=== PATIENT | male | born 1965 | race Caucasian/White ===

== ENCOUNTER 2023-03-17 13:36 | Inpatient (IN) | payer SELFPAY ==
[2023-03-17] VITALS (23 sets, daily range): BP systolic 141–199; BP diastolic 68–93; PULSE 52–99; RESP 14–24; TEMP 36.6–37.2; O2SAT 95–100; BMI 29.1
[2023-03-17 13:57] LABS: Basophils % 0.3 %; Eosinophils % 0.5 %; Hematocrit 40.3 % (37-53); Lymphocytes # 0.7 10^3/uL (0.8-4.8); Lymphocytes % 8.5 %; Mean Corpuscular Hemoglobin 28.4 pg (27-33); Mean Corpuscular Volume 88.6 fl (82-101); Mean Platelet Volume 10.2 fL (7.4-10.4); Monocytes # 0.6 10^3/uL (0.2-0.9); Neutrophils # 6.39 10^3/uL (1.8-7.7); Neutrophils % 82.2 %; Nucleated Red Blood Cells % 0 %; Platelet Count 265 10^3/cmm (157-399); Red Blood Count 4.55 10^6/uL (3.85-5.65); Red Cell Distribution Width 13.2 % (12.1-15.1); White Blood Count 7.77 10^3/uL (3.29-11.43)
--- NOTE | 2023-03-17 14:09 | CTR_ITS ---
PROCEDURE INFORMATION: Exam: CT Abdomen And Pelvis Without Contrast Exam date and time: 03/17/2023 4:55 PM Age: 58 years old Clinical indication: Abdominal pain; Flank; Right; Prior surgery; Surgery date: 6+ months; Surgery type: Appy; Additional info: Flank pain TECHNIQUE: Imaging protocol: Computed tomography of the abdomen and pelvis without contrast. Radiation optimization: All CT scans at this facility use at least one of these dose optimization techniques: automated exposure control; mA and/or kV adjustment per patient size (includes targeted exams where dose is matched to clinical indication); or iterative reconstruction. REPORTING DATA: Count of CT and Cardiac NM exams in prior 12 months: This patient has received 0 known CTs and 0 known cardiac nuclear medicine studies in the 12 months prior to the current study. COMPARISON: US renal BI* [id number] 03/17/2023 4:22 PM RADIATION DOSE METRICS: Total DLP (mGy-cm): 798 FINDINGS: Tubes, catheters and devices: Right groin central venous catheter with tip in the distal SVC. Lungs: Mild atelectasis. Liver: Hypodense lesions in the liver are too small to characterize but are most likely cysts. No suspicious nodule. Gallbladder and bile ducts: Partially contracted gallbladder. No visible stones. The bile ducts are normal. Pancreas: Normal. No ductal dilation. Spleen: Normal. No splenomegaly. Adrenal glands: Normal. No mass. Kidneys and ureters: 9 mm obstructing calculus in the proximal right ureter. Mild right hydronephrosis. 4 mm right renal calculus. Atrophic left kidney. 5 mm left renal calculus. No left hydronephrosis. 1.7 cm hyperdense cortical lesion in the superior left kidney, Hounsfield units 49. Bilateral perinephric stranding. Stomach and bowel: Unremarkable. No obstruction. No mucosal thickening. Appendix: The appendix is not visualized. No secondary signs of appendicitis. Intraperitoneal space: Mild ascites in the pelvis and paracolic gutters. No free peritoneal air. Vasculature: Unremarkable. No abdominal aortic aneurysm. Lymph nodes: Unremarkable. No enlarged lymph nodes. Urinary bladder: Hester catheter in a decompressed urinary bladder. Mild wall thickening. Reproductive: Unremarkable as visualized. Bones/joints: Mild degenerative changes of the spine. No acute fracture. Soft tissues: Lipoma in the left iliacus muscle and iliopsoas tendon. Lumbar subcutaneous soft tissue edema. CT/CT kidney stone [id number] IMPRESSION: 1. 9 mm obstructing calculus in the proximal right ureter with mild hydronephrosis. 2. Bilateral renal calculi. 3. 1.7 cm indeterminate cortical lesion in the superior left kidney. Recommend non-emergent MRI without and with contrast or non-emergent CT without and with contrast. MRI is preferred for masses under 1.5 cm. 4. Atrophic left kidney. 5. Mild wall thickening of the urinary bladder is most likely related to nondistention. Cystitis is not excluded. 6. Mild ascites. COMMENTS: Consistent with the [employer]'s Incidental Findings Committee white paper (J Am Aleksandr Radiol 2018): Any incidental renal lesion less than 1 cm or classified as too small to characterize, or any incidental cystic renal lesion characterized as simple-appearing, is likely benign. No follow-up imaging is recommended for these lesions per consensus recommendations based on imaging criteria.
--- NOTE | 2023-03-17 14:13 | W.ED.MALEGU ---
HPI - Male Genitourinary General: Chief complaint: Urogenital-Male Stated complaint: kidney pain Time Seen by Provider: 03/17/23 13:51 Source: patient Mode of arrival: ambulatory History of Present Illness: 58-year-old male comes in complaining of right flank pain. He is concerned he has had kidney stones in the past he is having flank pain reminiscent of his previous kidney stones. Has not had any hematuria denies fever sweats chills no dysuria urgency or frequency. Earlier this year he was told he had kidney problems and his creatinine is elevated he does not recall a particular number. He had a CT which she showed us a copy of which did not show significant abnormality. Onset (ago): minute(s) Duration: constant Location: right flank Severity: moderate Relieving factors: none Exacerbating factors: none Associated symptoms: Deny discharge, dysuria, fevers/chills, hematuria, nausea, rash, swelling, urinary incontinence, urinary retention, mass or vomiting Review of Systems Const: Denies: fever(s) or chills Card: Denies: chest pain Resp: Denies: dyspnea GI: Denies: abdominal pain, nausea or vomiting : Reports: flank pain; Denies: dysuria, urinary frequency, urinary urgency, urinary incontinence or hematuria Musc: Denies: neck pain or back pain Skin/Breast: Denies: rash PFSH ED PFSH: Medical History (Updated 03/18/23 @ 06:45 by Chalino Bruce DO) Elevated blood pressure reading in office with white coat syndrome, without diagnosis of hypertension Kidney stones Surgical History (Updated 03/17/23 @ 16:36 by Ceci Moody MD) History of appendectomy History of vasectomy with subsequent reversal Family History (Updated 03/17/23 @ 16:38 by Ceci Moody MD) Mother Renal cancer Other Hearing loss Denies family history of Sinus disease Diabetes Autoimmune disease Chronic kidney disease (CKD) Social History (Updated 03/17/23 @ 16:39 by Ceci Moody MD) Smoking and tobacco/nicotine status: never used tobacco/nicotine Alcohol intake: never Substance/Drug Use: never Lives independently: Yes Household members: spouse Marital status: Physical Exam Const: COMMON NORMALS: no acute distress GENERAL APPEARANCE: cooperative and comfortable ORIENTATION/CONSCIOUSNESS: Yes awake, Yes oriented to person, Yes oriented to place and Yes oriented to time HENMT: COMMON NORMALS: normocephalic, atraumatic and hearing grossly normal bilaterally HEAD & SCALP: normocephalic and atraumatic Resp: COMMON NORMALS: normal respiratory effort, No retractions, No use of accessory muscles and clear to auscultation bilaterally AUSCULTATION: clear to auscultation bilaterally Cardio: COMMON NORMALS: regular rate, regular rhythm and No murmurs present (Cardio) RATE: regular rate RHYTHM: regular rhythm GI: COMMON NORMALS: Soft to palpation and No hepatosplenomegaly present AUSCULTATION: Yes normoactive bowel sounds PALPATION: Yes Soft to palpation, No Tenderness to palpation present (GI), No Guarding due to palpation present (GI) and Yes No hepatosplenomegaly present Extremity: COMMON NORMALS: normal to inspection, capillary refill normal, no clubbing, cyanosis or edema, no calf tenderness and no pedal edema Neuro: SENSORIUM/ORIENTATION: Yes oriented to person, Yes oriented to place and Yes oriented to time Skin: COMMON NORMALS: no rashes or lesions noted GENERAL SKIN EXAM: no rashes or lesions noted Course Vital Signs: Vital signs: Vital Signs Temperature 98.1 F 03/18/23 01:00 Pulse Rate 55 L 03/18/23 02:00 Respiratory Rate 16 03/18/23 02:00 Blood Pressure 163/88 03/18/23 02:00 Pulse Oximetry 96 03/18/23 02:00 Oxygen Delivery Me thod Room Air 03/17/23 19:30 MDM - Male Medical Decision Making Severe Hyperkalemia confirmed by second lab draw EKG shows peaked T waves. Patient started on calcium chloride sodium bicarb albuterol also given glucose/insulin and albuterol. Consulted Dr. Danielle for placement of a temporary dialysis line consulted nephrology. Discussed with hospitalist will admit. CT shows obstructive stone on the right ureter proximally there is severe atrophy of the left kidney. Interestingly his CT done in [place] which the patient has a hard copy of the report makes no mention of atrophy in the left kidney. Start emergent dialysis admit to ICU. Orders written. No sign of secondary infections. Medical Records I reviewed the patient's medical records. Lab Data I reviewed the patient's lab results. 03/18/23 05:00 03/18/23 05:00 Radiology Impressions Abdomen/Pelvis CT 03/17/23 14:09 IMPRESSION: 1. 9 mm obstructing calculus in the proximal right ureter with mild hydronephrosis. 2. Bilateral renal calculi. 3. 1.7 cm indeterminate cortical lesion in the superior left kidney. Recommend non-emergent MRI without and with contrast or non-emergent CT without and with contrast. MRI is preferred for masses under 1.5 cm. 4. Atrophic left kidney. 5. Mild wall thickening of the urinary bladder is most likely related to nondistention. Cystitis is not excluded. 6. Mild ascites. COMMENTS: Consistent with the [employer] [place] [employer]'s Incidental Findings Committee white paper (J Am Aleksandr Radiol 2018): Any incidental renal lesion less than 1 cm or classified as too small to characterize, or any incidental cystic renal lesion characterized as simple-appearing, is likely benign. No follow-up imaging is recommended for these lesions per consensus recommendations based on imaging criteria. Renal Ultrasound 03/17/23 15:56 IMPRESSION: 1. Mild right hydronephrosis. The calculus in the proximal right ureter visible on the CT scan, is not visible on the ultrasound. 2. 4 mm right renal calculus. 3. Small left kidney. The small left renal calculus visualized on the CT is not visible on the ultrasound. Laboratory Results WBC 7.77 10^3/uL (3.29-11.43) 03/17/23 13:52 RBC 4.55 10^6/uL (3.85-5.65) 03/17/23 13:52 Hgb 12.90 g/dL (11.27-16.99) 03/17/23 13:52 Hct 40.3 % (37-53) 03/17/23 13:52 MCV 88.6 fl (82-101) 03/17/23 13:52 MCH 28.4 pg (27-33) 03/17/23 13:52 MCHC 32.0 g/dL (30-55) 03/17/23 13:52 RDW 13.2 % (12.1-15.1) 03/17/23 13:52 Plt Count 265 10^3/cmm (157-399) 03/17/23 13:52 MPV 10.2 fL (7.4-10.4) 03/17/23 13:52 Neut % (Auto) 82.2 % 03/17/23 13:52 Lymph % (Auto) 8.5 % 03/17/23 13:52 [place] % (Auto) 8.0 % 03/17/23 13:52 Eos % (Auto) 0.5 % 03/17/23 13:52 Baso % (Auto) 0.3 % 03/17/23 13:52 Neut # (Auto) 6.39 10^3/uL (1.8-7.7) 03/17/23 13:52 Lymph # (Auto) 0.7 10^3/uL (0.8-4.8) L 03/17/23 13:52 [place] # (Auto) 0.6 10^3/uL (0.2-0.9) 03/17/23 13:52 Eos # (Auto) 0.0 10^3/uL (0.0-0.8) 03/17/23 13:52 Baso # (Auto) 0.0 10^3/uL (0.0-0.1) 03/17/23 13:52 Nucleated RBC % (auto) 0 % 03/17/23 13:52 Nucleated RBCs # 0.0 /100WBC 03/17/23 13:52 Sodium 127 mmol/L (136-145) L 03/17/23 14:29 Potassium 8.2 mmol/L (3.5-5.1) H* 03/17/23 14:29 Chloride 92 mmol/L (98-107) L 03/17/23 14:29 Carbon Dioxide 12 mmol/L (22-29) L 03/17/23 14:29 Anion Gap 31.2 (5-19) H 03/17/23 14:29 BUN 153 mg/dL (6-20) H* 03/17/23 14:29 Creatinine 20.2 mg/dL (0.7-1.2) H* 03/17/23 14:29 GFR Calculation 2.4 mL/min (90-130) L 03/17/23 14:29 Glucose 82 mg/dL (65-115) 03/17/23 14:29 POC Glucose 82 mg/dL (70-110) 03/17/23 15:53 Calculated Osmolality 313 mOsm/kg (285-295) H 03/17/23 14:29 Calcium 8.4 mg/dL (8.5-10.5) L 03/17/23 14:29 Total Bilirubin 0.3 mg/dL (0.15-1.2) 03/17/23 13:52 AST 5 U/L (0-40) 03/17/23 13:52 ALT 7 U/L (0-41) 03/17/23 13:52 Alkaline Phosphatase 69 U/L (40-130) 03/17/23 13:52 Total Protein 6.6 g/dL (6.6-8.7) 03/17/23 13:52 Albumin 3.7 g/dL (3.5-5.2) 03/17/23 13:52 Globulin 2.9 g/dL (1.3-4.6) 03/17/23 13:52 Salicylates < 0.3 mg/dL (3-10) L 03/17/23 13:52 All radiology interpretation(s) finalized by discharge Critical Care Time Critical Care Time: Critical Care Time: Yes Total Critical Care Time: 60 Attestation: The high probability of a clinically significant, sudden or life threatening deterioration of the patient's renal system(s) required my full and direct attention, intervention and personal management. The critical care time is as shown. This time is in addition to time spent performing any reported procedures but includes the following: [x] Data and vital sign review and interpretation [x] Patient assessment, examination and intervention [x] Documentation [x] Medication orders and management Discharge Plan Discharge Patient Disposition: Admitted As Inpatient Admit Provider: Ceci Moody Clinical Impression: Acute renal failure, Kidney stones, Acute hyperkalemia Condition: Stable Coding Level of Care Code ED [employer] for Tommy Levi
[2023-03-17 14:15] LABS: Alanine Aminotransferase 7 U/L (0-41); Albumin Level 3.7 g/dL (3.5-5.2); Alkaline Phosphatase 69 U/L (40-130); Anion Gap 32.2 (5-19); Aspartate Amino Transferase 5 U/L (0-40); Calcium 8.4 mg/dL (8.5-10.5); Carbon Dioxide 11 mmol/L (22-29); Chloride 93 mmol/L (98-107); Globulin 2.9 g/dL (1.3-4.6); Glomerular Filtration Rate 2.4 mL/min (90-130); Glucose 82 mg/dL (65-115); Sodium 128 mmol/L (136-145); Total Bilirubin 0.3 mg/dL (0.15-1.2); Total Protein 6.6 g/dL (6.6-8.7)
[2023-03-17 14:23] LABS: Osmolality Calculated 307 mOsm/kg (285-295)
[2023-03-17 14:25] LABS: Blood Urea Nitrogen 130 mg/dL (6-20); Potassium 8.2 mmol/L (3.5-5.1)
--- NOTE | 2023-03-17 14:26 | ECG_ITS ---
[facility] Test Date: 2023-03-17 Pat Name: Ricky Russo Department: Room: Gender: Male F[place]aver: : 1965 Requested By: Chalino Xiao Order Number: [id number] Taurus MD: Ashwin Friend M.D. Measurements Intervals [place] Rate: 62 P: 55 OR: 169 QRS: 64 QRSD: 102 T: 45 QT: 386 QTc: 393 Interpretive Statements SINUS RHYTHM No previous ECG available for comparison Electronically Signed On 03-17-2023 15:14:36 CDT by Ashwin Friend M.D. [id number]
--- NOTE | 2023-03-17 14:44 | PC.PHAR ---
PT STATES TAKES TAMSULOSIN 0.4 MG DAILY NEEDED FOR KIDNEY STONES. VERIFIED PT USES [facility]. PHARMACY IS UNABLE TO VERIFY THIS MEDICATION, THEY HAVE NOT FILLED FOR HIM.
[2023-03-17] MEDS: sodium chloride 0.9% 1,000 ML 999 ML IV ×2 (14:49→14:50)
[2023-03-17 14:50] LABS: Anion Gap 31.2 (5-19); Calcium 8.4 mg/dL (8.5-10.5); Carbon Dioxide 12 mmol/L (22-29); Chloride 92 mmol/L (98-107); Glomerular Filtration Rate 2.4 mL/min (90-130); Glucose 82 mg/dL (65-115); Sodium 127 mmol/L (136-145)
[2023-03-17 14:57] LABS: Osmolality Calculated 313 mOsm/kg (285-295)
[2023-03-17 15:00] LABS: Blood Urea Nitrogen 153 mg/dL (6-20); Potassium 8.2 mmol/L (3.5-5.1)
[2023-03-17] MEDS: dextrose 10% 1,000 ML 75 ML IV (15:48)
--- NOTE | 2023-03-17 15:48 | PC.NURSE ---
bolus 100mL dextrose from infusion per Dr. Bruce. infusion started at 75mL/hr
--- NOTE | 2023-03-17 15:52 | P.HP_ITS ---
Providers/Chief Complaint Admitting Physician: Ceci Moody MD Primary Care Provider: none currently Previously saw Dr Amaya in [place] Chief Complaint: kidney pain History of Present Illness Ricky Russo is a 58 year old male who presented to the emergency room with chief complaint of kidney pain. Mr. Russo has a history of kidney stones in the past. He is never required any invasive or noninvasive intervention for kidney stones previously. He has passed the stones but does not know what kind of stones he has passed. He began having right-sided pain a little more than a week ago on Friday. It was sharp right-sided pain that has not abated and ultimately he decided to come in today for further evaluation. Pain has not been radiating into his groin. He has not passed a stone that he is aware of. He has had general malaise. He had been having issues with constipation but lately has had diarrhea. He is nauseated presently. On arrival to the emergenc y room blood pressures were 160s over 80s and heart rate in the 90s. He was afebrile. Laboratory studies came back showing BUN and creatinine of 130/19.9 and a potassium level of 8.2. Repeat labs to verify showed BUN and creatinine 153/20.2 again with a potassium of 8.2. He has received calcium chloride and sodium bicarbonate, albuterol, insulin and dextrose along with IV fluids. He has also been given Kayexalate. Bilateral renal ultrasound has been done and CT without contrast is ordered but pending. He has some right flank pain but not currently severe. He has not used any NSAIDs. His only medication is as needed Flomax when he is having issues with kidney stones. He has no known personal history of chronic kidney disease. He has recently located here from [place]. I was able to see labs that were done in August 2022 and at that time BUN and creatinine were 35/1.97 with potassium of 5.3. Other labs available from then are documented below in the data section. Twelve-lead EKG does have some elevation in T waves but currently in sinus rhythm. Hospitalist were contacted for admission given need for emergent dialysis. Surgery has placed temporary dialysis catheter in the right groin. Approximately 15 mL of urine have been collected just recently and are noted to be clear and yellow. At no time does he report any tea colored urine, blood in his urine. Last urine output was a couple of days ago at home. No recent chest pain or difficulty breathing. He has had recent sore throat. He is also had some low back pain and complained of his feet hurting him most recently. General sense of not feeling well currently. No palpitations. Nephrology has been contacted for consultation. Review of Systems General: Reports: Other (ROS as per HPI or as otherwise noted here) Medications/Allergies Home Medications Medication Instructions Recorded Confirmed Last Taken Type tamsulosin 0.4 mg capsule 0.4 mg PO DAILY PRN KIDNEY STONES 03/17/23 03/17/23 03/17/23 History Allergies Allergy/AdvReac Type Severity Reaction Status Date / Time No Known Allergies Allergy Verified 03/17/23 13:41 PFSH Acute PFSH: Medical History (Updated 03/17/23 @ 17:15 by Ceci Moody MD) Elevated blood pressure reading in office with white coat syndrome, without diagnosis of hypertension Kidney stones Surgical History (Updated 03/17/23 @ 16:36 by Ceci Moody MD) History of appendectomy History of vasectomy with subsequent reversal Family History (Updated 03/17/23 @ 16:38 by Ceci Moody MD) Mother Renal cancer Other Hearing loss Denies family history of Sinus disease Diabetes Autoimmune disease Chronic kidney disease (CKD) Social History (Updated 03/17/23 @ 16:39 by Ceci Moody MD) Smoking and tobacco/nicotine status: never used tobacco/nicotine Alcohol intake: never Substance/Drug Use: never Lives independently: Yes Household members: spouse Marital status: Vitals/I&O/Wt Last Vital Signs Temp 97.8 F 03/17/23 13:43 Pulse 70 03/17/23 15:39 Resp 23 H 03/17/23 15:39 BP 156/68 03/17/23 15:39 Pulse Ox 100 03/17/23 15:39 O2 Del Method Room Air 03/17/23 15:39 03/17/23 03/17/23 03/17/23 06:59 14:59 22:59 Intake Total 1999 Balance 1999 Weight last 48 hrs Weight 97.522 kg Physical Exam Narrative: Patient is awake and alert, able to provide history. Normocephalic. Extraocular movements are intact. Oropharynx with dry mucous membranes. Neck is supple. Lungs are clear to auscultation bilaterally without any rales rhonchi or wheezes. Cardiovascular exam reveals a regular rate and rhythm. Abdomen is soft. Mild right flank pain. No left-sided flank pain. Positive bowel sounds. No pitting edema. Hemodialysis catheter is in place in the right groin with dressing intact. 2+ radial pulse. No abnormal movements. Speech clear, face symmetric, moves all extremities. Data 03/17/23 13:52 03/17/23 14:29 Other Labs: LABS FROM outside facility from AUGUST 2022 viewed on patients cell phone: Sodium 136 Potassium 5.3 Chloride 102 CO2 25 BUN 35 Creatinine 1.97 eGFR 39 Glucose 96 Calcium 9.2 Magnesium 2.2 Other Laboratory Results at [facility] Today WBC 7.77 10^3/uL (3.29-11.43) 03/17/23 13:52 RBC 4.55 10^6/uL (3.85-5.65) 03/17/23 13:52 Hgb 12.90 g/dL (11.27-16.99) 03/17/23 13:52 Hct 40.3 % (37-53) 03/17/23 13:52 MCV 88.6 fl (82-101) 03/17/23 13:52 MCH 28.4 pg (27-33) 03/17/23 13:52 MCHC 32.0 g/dL (30-55) 03/17/23 13:52 RDW 13.2 % (12.1-15.1) 03/17/23 13:52 Plt Count 265 10^3/cmm (157-399) 03/17/23 13:52 MPV 10.2 fL (7.4-10.4) 03/17/23 13:52 Neut % (Auto) 82.2 % 03/17/23 13:52 Lymph % (Auto) 8.5 % 03/17/23 13:52 [place] % (Auto) 8.0 % 03/17/23 13:52 Eos % (Auto) 0.5 % 03/17/23 13:52 Baso % (Auto) 0.3 % 03/17/23 13:52 Neut # (Auto) 6.39 10^3/uL (1.8-7.7) 03/17/23 13:52 Lymph # (Auto) 0.7 10^3/uL (0.8-4.8) L 03/17/23 13:52 [place] # (Auto) 0.6 10^3/uL (0.2-0.9) 03/17/23 13:52 Eos # (Auto) 0.0 10^3/uL (0.0-0.8) 03/17/23 13:52 Baso # (Auto) 0.0 10^3/uL (0.0-0.1) 03/17/23 13:52 Nucleated RBC % (auto) 0 % 03/17/23 13:52 Nucleated RBCs # 0.0 /100WBC 03/17/23 13:52 PT 15.90 SECONDS (12.1-14.9) H 03/17/23 16:13 INR 1.22 (0.8-1.2) H 03/17/23 16:13 APTT 27.7 SECONDS (23.9-36.7) 03/17/23 16:13 Sodium 127 mmol/L (136-145) L 03/17/23 14:29 Potassium 8.2 mmol/L (3.5-5.1) H* 03/17/23 14:29 Chloride 92 mmol/L (98-107) L 03/17/23 14:29 Carbon Dioxide 12 mmol/L (22-29) L 03/17/23 14:29 Anion Gap 31.2 (5-19) H 03/17/23 14:29 BUN 153 mg/dL (6-20) H* 03/17/23 14:29 Creatinine 20.2 mg/dL (0.7-1.2) H* 03/17/23 14:29 GFR Calculation 2.4 mL/min (90-130) L 03/17/23 14:29 Glucose 82 mg/dL (65-115) 03/17/23 14:29 Estimat Average Glucose 108 03/17/23 16:13 Hemoglobin A1c 5.4 % (4.0-6.0) 03/17/23 16:13 Calculated Osmolality 313 mOsm/kg (285-295) H 03/17/23 14:29 Calcium 8.4 mg/dL (8.5-10.5) L 03/17/23 14:29 Magnesium 2.3 mg/dL (1.7-2.3) 03/17/23 16:13 Total Bilirubin 0.3 mg/dL (0.15-1.2) 03/17/23 13:52 AST 5 U/L (0-40) 03/17/23 13:52 ALT 7 U/L (0-41) 03/17/23 13:52 Alkaline Phosphatase 69 U/L (40-130) 03/17/23 13:52 Creatine Kinase 63 U/L (39-308) 03/17/23 16:13 Total Protein 6.6 g/dL (6.6-8.7) 03/17/23 13:52 Albumin 3.7 g/dL (3.5-5.2) 03/17/23 13:52 Globulin 2.9 g/dL (1.3-4.6) 03/17/23 13:52 Complement C3 111 mg/dL (90-180) 03/17/23 16:13 Hep Bs Antigen Non-reactive (Nonreactive) 03/17/23 16:13 Hep Bs Antibody 6.6 (11.5-1000) L 03/17/23 16:13 Hepatitis C Antibody Non-reactive (Nonreactive) 03/17/23 16:13 Renal ultrasound performed but pending read CT without contrast pending completion A&P Assessment and plan (1) Acute renal failure: Specific etiology unclear at this point in time. Based on available reference labs appears to be acute on chronic, baseline chronic kidney disease stage IIIb based on available information from labs obtained in August of this year when EGFR was 39. Has whitecoat hypertension by description but no chronic antihypertensive therapy. Based on available history obstructive process currently highest in the differential though does not present like classic acutely obstructive stone. No recent medication changes, use of [id number] er medicines or significant fluctuations in blood pressure to suggest ATN. No known history of autoimmune diseases but has had recent sore throat, back pain and bilateral foot pain. Not a known diabetic and presently with normal blood sugars. No excessive physical activity or trauma reported. Denies alcohol or substance use. Currently with symptomatic hyperkalemia and azotemia from acute renal failure along with high anion gap metabolic acidosis. (2) Kidney stones: History of kidney stones, specific type of stone unknown. Has had symptoms suggesting recurrent kidney stones lately but not presenting with classic severe pain typically associated with such. Never required intervention for kidney stones in the past. (3) High anion gap metabolic acidosis: Secondary to acute renal failure. (4) Elevated blood pressure reading without diagnosis of hypertension: Variable blood pressures currently in a healthcare setting. Indicates that outside of healthcare setting blood pressures are typically normal. Has never required antihypertensive therapy long-term. (5) Diarrhea: Suspect functional diarrhea based on preceding constipation, but given acute renal failure have to keep in mind potential infectious sources Plan Inpatient admission ICU level care at least initially Nephrology consultation for emergent dialysis Temporary hemodialysis catheter has been placed by general surgery Plan for emergent hemodialysis Re-evaluate labs post hemodialysis Has received insulin and dextrose, albuterol, calcium chloride, bicarbonate and Kayexalate Telemetry monitoring Continue IV fluids Follow-up pending CT stone protocol without contrast Patient and aware that we do not have urology available and pending results of above consideration may have to be given to transfer if indicated after addressing emergent need for acute hemodialysis Follow-up pending renal ultrasound Hester catheter for close monitoring of urine output in the setting of acute renal failure Check urinalysis when urine available, CK, hepatitis, HIV, C3-C4, MUKESH, salicylate, A1c, lipid panel, iron, PTH and vitamin D Check magnesium, phosphorus and uric acid Check stool studies Monitor blood pressures presently given anticipated initiation of acute h emodialysis today May have to consider initiation of antihypertensives, keeping in mind history of white coat hypertension Supportive care otherwise Findings, concerns and plans discussed with patient and his and both given opportunity to ask questions Anticipate DC home with outpatient follow up with nephrology as a new patient, possible with hemodialysis as a new patient, and with primary care provider who will need to be established. FULL CODE Attestations Medical Necessity Statement*: Anticipated stay greater than two midnights in this gentleman with acute renal failure necessitating emergent hemodialysis due to azotemia and hyperkalemia along with anion gap metabolic acidosis. At high risk of rapid clinical decline up to and including the possibility of without emergent intervention. Pending results of noncontrasted CT stone protocol may require consideration of transfer for urological intervention. Coding Level of Care Code 18519 High MDM includes number and complexity of problems actively addressed during encounter (Acute ), amount and/or complexity of data reviewed/ordered [ previous or external records, resulted lab(s)/test(s), ordered lab(s)/test(s) and other healthcare professional discussion (Dr Armas (Nephrology))] and described risk of complication, morbidity or mortality of management (need for emergent hemodialysis, admission to ICU) as documented Diagnoses Acute renal failure N17.9 Kidney stones N20.0 High anion gap metabolic acidosis E87.29 Elevated blood pressure reading without diagnosis of hypertension R03.0 Diarrhea R19.7
[2023-03-17] MEDS: calcium chloride 10% Syr 10 mL 2 GM IVP (15:55)
[2023-03-17] MEDS: sodium bicarbonate 8.4% 1 mEq/mL 50mL Syr 100 MEQ IVP (15:56)
[2023-03-17] MEDS: insulin regular-human 100 units/1 mL 10 UNIT IVP (15:56)
--- NOTE | 2023-03-17 15:56 | USR_ITS ---
PROCEDURE INFORMATION: Exam: US Retroperitoneal; Complete; Kidneys and Bladder Exam date and time: 03/17/2023 4:22 PM Age: 58 years old Clinical indication: Other: Krzysztof TECHNIQUE: Imaging protocol: Real-time ultrasound of the retroperitoneum with image documentation. Complete exam focused on the kidneys and bladder. COMPARISON: CT kidney stone [id number] 03/17/2023 4:55 PM FINDINGS: Limitations: The tubing machine operator did not provide any color Doppler images of the kidneys or the urinary bladder. Right kidney: 14.1 x 5.9 x 7.3 cm. Mild hydronephrosis. 4 mm echogenic focus in a mid calyx is consistent with a small calculus. No calculus visualized in the proximal collecting system. No visible mass or cyst. Left kidney: 9.4 x 4.9 x 5.2 cm. No visible mass, cyst, calculus, or hydronephrosis. Urinary bladder: Normal size and contour. US/US renal BI* [id number] IMPRESSION: 1. Mild right hydronephrosis. The calculus in the proximal right ureter visible on the CT scan, is not visible on the ultrasound. 2. 4 mm right renal calculus. 3. Small left kidney. The small left renal calculus visualized on the CT is not visible on the ultrasound.
[2023-03-17] MEDS: sodium polystyrene sulfonate 15 gm/60 mL Btl PO (16:03)
--- NOTE | 2023-03-17 16:05 | P.CONIM_ITS ---
Providers/Reason For Consult Consulting Physician/Specialty*: Dr. Gelacio Danielle DO/General surgery Reason for Consult*: Temporary hemodialysis catheter placement Attending Physician: Juve Paige MD History of Present Illness History of Present Illness Ricky Russo is a 58 year old male who presented to the emergency room with a 1 week history of bilateral kidney pain. He has history of kidney stones and reports that he has passed the stones in the last week. He wanted to come in for evaluation anyway. He denies any abdominal pain nausea or emesis. In August his creatinine was reportedly 1.9 but in the hospital today his creatinine is over 20. He denies any fever or chills. The emergency department has requested urgent temporary hemodialysis catheter placement. Review of Systems General: Reports: 10 or more systems reviewed and unremarkable except in HPI and below Medications/Allergies Home Medications Medication Instructions Recorded Confirmed Last Taken Type tamsulosin 0.4 mg capsule 0.4 mg PO DAILY PRN KIDNEY STONES 03/17/23 03/17/23 03/17/23 History Allergies Allergy/AdvReac Type Severity Reaction Status Date / Time No Known Allergies Allergy Verified 03/17/23 13:41 Current Medications Generic Name Dose Route Start Last Admin Trade Name Freq PRN Reason Stop Dose Admin Acetaminophen 650 mg 03/17/23 18:57 03/17/23 22:01 Acetaminophen 325 Mg Tablet PO 650 mg Q6H PRN Administration MILD PAIN Docusate Sodium 100 mg 03/17/23 18:57 03/17/23 21:51 Docusate Sodium 100 Mg Capsule PO 100 mg BID ANA Administration Heparin Sodium (Porcine) 5,000 unit 03/17/23 20:00 03/17/23 21:51 Heparin 5,000 Unit/Ml Inj 1 Ml SUBCUT 5,000 unit Q12H ANA Administration Dextrose 1,000 mls @ 75 mls/hr 03/17/23 14:45 03/18/23 01:22 D10w IV 95 mls/hr .[id number] ANA Administration PFSH Acute PFSH: Medical History Elevated blood pressure reading in office with white coat syndrome, without diagnosis of hypertension Kidney stones Surgical History History of appendectomy History of vasectomy with subsequent reversal Family History Mother Renal cancer Other Hearing loss Denies family history of Sinus disease Diabetes Autoimmune disease Chronic kidney disease (CKD) Social History Smoking and tobacco/nicotine status: never used tobacco/nicotine Alcohol intake: never Substance/Drug Use: never Lives independently: Yes Household members: spouse Marital status: Vitals/I&O/Wt Last Vital Signs Temp 98.1 F 03/18/23 01:00 Pulse 52 L 03/18/23 06:00 Resp 15 03/18/23 06:00 BP 153/88 03/18/23 06:00 Pulse Ox 95 03/18/23 06:00 O2 Del Method Room Air 03/17/23 19:30 03/17/23 03/18/23 03/18/23 22:59 06:59 14:59 Intake Total 2532.5 / 2532.5 804.333 / 3336.833 Output Total 1817 / 1817 50 / 1867 Balance 715.5 / 715.5 754.333 / 1469.833 Weight last 48 hrs Weight 214 lb Weight 209 lb 10.554 oz Weight 215 lb Physical Exam Narrative: General : Patient is well developed , no acute distress, oriented x3 Head : Normal cephalic, a-traumatic. Ears : Pinnae and external canal are normal. Hearing is normal. Eyes : PERRLA, Sclera and injection are normal. No conjunctival discharge. Nose : Mucous membranes are without erythema. Throat : buccal mucosa is normal, gums are without significant recession or h ypertrophy. Lungs : Equal chest rise bilaterally, no use of accessory muscles, trachea is midline. Cor : Rate and rhythm are normal. Abdomen : Soft, ND, NT, no g/r/m Extremities : No edema, no cyanosis or clubbing, dorsalis pedis pulses are present bilaterally, non-tender to palpation of calves. Upper extremities are normal bilaterally. Back : non-tender to palpation, no CVA tenderness. Neuro : CN II - XII intact, Upper and lower extremities have equal and full strength Urinary Catheter Management: Hester: Cath Placed During This Visit: yes Reason for Continuing Indwelling Catheter: Accurate Measurement of Urinary Output in Critically Ill Patients Urinary Catheter Date of Insertion: 03/17/23 Urinary Catheter Time of Insertion: 16:46 Data 03/18/23 05:00 03/18/23 05:00 A&P Assessment and plan (1) Acute renal failure: Plan Temporary hemodialysis catheter placement The risks and benefits of the procedure, including but not limited to, bleeding, infection, scar, numbness, pain, damage to surrounding structures, malfunction of the catheter, were explained to the patient. He is understanding of the risks and wishes to proceed. Timeout was performed with nurse in the room and nurse was present during the procedure Coding Level of Care Code 98394 Diagnoses Acute renal failure N17.9
--- NOTE | 2023-03-17 16:05 | P.PCN_ITS ---
Procedure Note: Procedure: Preoperative diagnosis: Acute renal failure requiring emergent dialysis Postoperative diagnosis: Same Procedure: Placement of Mahurkar catheter in the right femoral vein Surgeon: Dr. Gelacio Danielle, DO Anesthesia: Local Description of procedure: The patient's right groin was prepped and draped in a sterile manner. 5 mL of 1% lidocaine was infiltrated at the site of planned entry, an introducer needle was used to access the right femoral vein. Guidewire was passed through the introducer needle and the introducer needle was removed. Serial dilators were passed over the guidewire after the skin incision was extended using 11 blade and Mahurkar catheter was then passed over the krishan dewire and the guidewire was removed. The catheter was sutured to the skin using 2-0 Ethilon suture. Sterile dressings were applied. Coding Level of Care Code Acute Code for Chg Fwd
[2023-03-17] MEDS: promethazine 25 mg/mL SDV 1 mL IM (16:13)
--- NOTE | 2023-03-17 16:20 | PC.NURSE ---
bolus of 100 mL dextrose finished at 1540, infusion of 75mL/hr started at 1540
[2023-03-17] MEDS: albuterol 2.5 mg/3 mL Neb 10 MG INHALATION (16:29)
[2023-03-17 16:36] LABS: INR 1.22 (0.8-1.2)
[2023-03-17 16:37] LABS: Partial Thromboplastin Time 27.7 SECONDS (23.9-36.7)
[2023-03-17 16:40] LABS: Complement C3 111 mg/dL (90-180); Creatine Phosphokinase 63 U/L (39-308); Magnesium 2.3 mg/dL (1.7-2.3); Uric Acid 9.5 mg/dL (3.4-7.0)
[2023-03-17 16:47] LABS: Estmated Average Glucose 108; Hemoglobin A1C 5.4 % (4.0-6.0)
--- NOTE | 2023-03-17 16:53 | PC.NURSE ---
pt's glucose 85 via fingerstick, Dr. Moody notified. per Dr. Moody to titrate Dextrose infusion to 95 mL/hr
[2023-03-17 16:55] LABS: Hepatitis B Surface AB 6.6 (11.5-1000); Hepatitis B Surface Antigen Non-Reactive (Nonreactive)
[2023-03-17 16:56] LABS: Hepatitis C Virus Antibody Non-Reactive (Nonreactive)
[2023-03-17 16:58] LABS: Calcium 10.6 mg/dL (8.5-10.5)
[2023-03-17 17:03] LABS: Iron 58 ug/dL (59-158); Percent Saturation 35.3 % (20-50); Total Iron Binding Capacity 164 mcg/dl; Unsaturated Iron Binding 106 ug/dL (112-347)
[2023-03-17 17:05] LABS: Parathyroid Hormone 85.7 pg/mL (15-65)
[2023-03-17 17:06] LABS: Phosphorus 8.8 mg/dL (2.5-4.5)
[2023-03-17 17:06] LABS: Salicylate < 0.3 mg/dL (3-10)
--- NOTE | 2023-03-17 17:07 | PC.NURSE ---
Dr. Danielle explained need for temporary hemodialysis catheter placement, pt verbalized understanding and agreed, consent form signed and in pt chart, this nurse witnessed. this nurse present for procedure. Dr. Danielle placed a R femoral temporary hemodialysis catheter.
[2023-03-17 17:23] LABS: Add Urine Microscopic? YES; Bilirubin Urine Neg (Negative); Blood Urine Trace (Negative); Glucose Urine UA Norm (Normal); Ketones Urine 1+ (Negative); Leukocyte Esterase Urine Negative (Negative); Nitrate Urine Negative (Negative); Protein Urine Neg (Negative); Urine Appearance Clear (CLEAR); Urine Color Straw (Yellow); Urobilinogen Urine Norm (Negative); pH Urine 5 (5-7)
[2023-03-17 17:24] LABS: Add Urine Culture? No; Bacteria Urine TRACE /hpf; RBC Urine RARE /hpf (0-2); WBC Urine RARE /hpf (0-5)
[2023-03-17 19:13] LABS: Glucose Point of Care 100 mg/dL (70-110)
[2023-03-17 19:42] LABS: HIV 1 & 2 Antibody Non-Reactive (Non-Reactiv); HIV 1 & 2 Antigen Non-Reactive (Non-Reactiv)
[2023-03-17 19:47] LABS: Anion Gap 27.5 (5-19); Calcium 8.9 mg/dL (8.5-10.5); Carbon Dioxide 13 mmol/L (22-29); Chloride 99 mmol/L (98-107); Glomerular Filtration Rate 2.3 mL/min (90-130); Glucose 112 mg/dL (65-115); Magnesium 2.8 mg/dL (1.7-2.3)
[2023-03-17] MEDS: heparin, porcine 1,000 unit/mL INJ 10 mL 10000 UNIT INTRACATH (19:47)
--- NOTE | 2023-03-17 20:27 | PM.CONSULT ---
Providers/Reason For Consult Consulting Physician/Specialty*: kommana/ESRD Reason for Consult*: ESRD Attending Physician: Ceci Moody MD History of Present Illness History of Present Illness Ricky Russo is a 58 year old male Patient is a 58-year-old male who presented to the emergency department complaining of flank pain. He reports that he have a history of kidney stones but has not seen urology in the past. Patient reports not having any history of chronic kidney disease, he recently relocated here from [place]. There were labs obtained from August 2022 that showed a creatinine of 1.9. In the emergency department he has elevated blood pressures in the 160s range and lab data was significant for potassium of 8.2 BUN of 153 and a creatinine of 20.2. Potassium was medically treated in the ED and general surgery was consulted for HD catheter placement. Plan for hemodialysis today. He denies any history of autoimmune diseases, denies any use of NSAIDs. Review of Systems Narrative: OTHER ROS NEGATIVE Medications/Allergies Home Medications Medication Instructions Recorded Confirmed Last Taken Type tamsulosin 0.4 mg capsule 0.4 mg PO DAILY PRN KIDNEY STONES 03/17/23 03/17/23 03/17/23 History Allergies Allergy/AdvReac Type Severity Reaction Status Date / Time No Known Allergies Allergy Verified 03/17/23 13:41 Current Medications Generic Name Dose Route Start Last Admin Trade Name Freq PRN Reason Stop Dose Admin Dextrose 1,000 mls @ 75 mls/hr 03/17/23 14:45 03/17/23 16:54 D10w IV 95 mls/hr .[id number] ANA Infusion PFSH Acute PFSH: Medical History Elevated blood pressure reading in office with white coat syndrome, without diagnosis of hypertension Kidney stones Surgical History History of appendectomy History of vasectomy with subsequent reversal Family History Mother Renal cancer Other Hearing loss Denies family history of Sinus disease Diabetes Autoimmune disease Chronic kidney disease (CKD) Social History Smoking and tobacco/nicotine status: never used tobacco/nicotine Alcohol intake: never Substance/Drug Use: never Lives independently: Yes Household members: spouse Marital status: Vitals/I&O/Wt Last Vital Signs Temp 97.8 F 03/17/23 13:43 Pulse 79 03/17/23 18:12 Resp 20 H 03/17/23 18:12 BP 191/93 03/17/23 18:12 Pulse Ox 100 03/17/23 18:12 O2 Del Method Room Air 03/17/23 16:46 03/17/23 03/17/23 03/17/23 06:59 14:59 22:59 Intake Total 2081. / 2081. Balance Weight last 48 hrs Weight 97.522 kg Physical Exam Narrative: awake , alert No distress S1S2 RRR per report Lungs clear per repot no edema Urinary Catheter Management: Hester: Cath Placed During This Visit: yes Urinary Catheter Date of Insertion: 03/17/23 Urinary Catheter Time of Insertion: 16:46 Data 03/18/23 05:00 03/18/23 05:00 A&P Assessment and plan (1) Acute renal failure: Plan 1. Acute on chronic kidney disease: Seems like his last creatinine was 1.9 in August. Now has severe GIUSEPPE with a creatinine of 20. Etiology likely multifactorial, prerenal, solitary kidney with chronic obstruction. Has left renal atrophy. Serological work-up ordered and pending at this time. Would benefit from urology evaluation. Plan for emergent HD due to severe hyperkalemia 2. Hyperkalemia: Low K diet and HD as above 3. Hypertension: Blood pressure elevated, will add meds if blood pressure remains elevated after HD 4. Bilateral kidney stones, will need urology evaluation. Has right hydronephrosis mild 5. Hyperphosphatemia: Should improve with HD. Patient evaluated using audiovisual cart. Time spent 40 minutes Consult Attestations Medical Necessity Statement: per medicine team Coding Level of Care Code Acute Code for g Fwd Diagnoses Acute renal failure N17.9
[2023-03-17 20:31] LABS: Blood Urea Nitrogen 124 mg/dL (6-20); Phosphorus 8.9 mg/dL (2.5-4.5); Potassium 6.5 mmol/L (3.5-5.1)
[2023-03-17 20:34] LABS: Osmolality Calculated 317 mOsm/kg (285-295); Sodium 133 mmol/L (136-145)
[2023-03-17 20:59] LABS: Glucose Point of Care 107 mg/dL (70-110)
[2023-03-17] MEDS: heparin 5,000 unit/mL INJ 1 mL 5000 UNIT SUBCUT (21:51)
[2023-03-17] MEDS: docusate sodium 100 mg Capsule PO (21:51)
[2023-03-17] MEDS: acetaminophen 325 mg Tablet 650 MG PO (22:01)
[2023-03-17 22:31] LABS: Anion Gap 17.8 (5-19); Blood Urea Nitrogen 79 mg/dL (6-20); Calcium 8.8 mg/dL (8.5-10.5); Carbon Dioxide 24 mmol/L (22-29); Chloride 95 mmol/L (98-107); Glomerular Filtration Rate 4.4 mL/min (90-130); Glucose 120 mg/dL (65-115); Osmolality Calculated 301 mOsm/kg (285-295); Potassium 3.8 mmol/L (3.5-5.1); Sodium 133 mmol/L (136-145)
--- NOTE | 2023-03-17 22:55 | PC.HD ---
Initial dialysis treatment for this patient. New right groin catheter with sluggish draw to arterial port, had to reverse lines. Arterial blood circuit clotted causing treatment termination 10 minutes early. Pt tolerated treatment very well.
[2023-03-18] VITALS (37 sets, daily range): BP systolic 137–179; BP diastolic 72–101; PULSE 52–79; RESP 15–22; TEMP 36.7–37; O2SAT 94–100
[2023-03-18] MEDS: dextrose 10% 1,000 ML 95 ML IV (01:22)
[2023-03-18 01:32] LABS: Glucose Point of Care 132 mg/dL (70-110)
[2023-03-18 04:40] LABS: Glucose Point of Care 85 mg/dL (70-110)
[2023-03-18 04:40] LABS: Glucose Point of Care 82 mg/dL (70-110)
[2023-03-18 05:14] LABS: Basophils % 0.3 %; Eosinophils # 0.1 10^3/uL (0.0-0.8); Eosinophils % 0.8 %; Hematocrit 36.8 % (37-53); Lymphocytes # 0.8 10^3/uL (0.8-4.8); Lymphocytes % 10.6 %; Mean Corpuscular HGB Conc 33.2 g/dL (30-55); Mean Corpuscular Hemoglobin 28.7 pg (27-33); Mean Corpuscular Volume 86.6 fl (82-101); Mean Platelet Volume 10.6 fL (7.4-10.4); Monocytes # 0.9 10^3/uL (0.2-0.9); Monocytes % 11.7 %; Neutrophils # 6.06 10^3/uL (1.8-7.7); Neutrophils % 76.5 %; Nucleated Red Blood Cells % 0 %; Platelet Count 204 10^3/cmm (157-399); Red Blood Count 4.25 10^6/uL (3.85-5.65); Red Cell Distribution Width 13.3 % (12.1-15.1); White Blood Count 7.92 10^3/uL (3.29-11.43)
[2023-03-18 05:47] LABS: Calcium 8.2 mg/dL (8.5-10.5); Carbon Dioxide 21 mmol/L (22-29); Chloride 96 mmol/L (98-107); Glomerular Filtration Rate 2.6 mL/min (90-130); Glucose 151 mg/dL (65-115); Magnesium 2.2 mg/dL (1.7-2.3); Osmolality Calculated 309 mOsm/kg (285-295); Sodium 133 mmol/L (136-145); Thyroid Stimulating Hormone 0.89 uIU/mL (0.27-4.20)
[2023-03-18 05:52] LABS: Blood Urea Nitrogen 98 mg/dL (6-20)
[2023-03-18 05:53] LABS: Phosphorus 8.4 mg/dL (2.5-4.5)
[2023-03-18 05:55] LABS: 25 Hydroxy Vitamin D 18 ng/mL (30-100); Chol HDL Ratio 3.75 mg/dL (1.0-5.00); Cholesterol 165 mg/dL (0-200); HDL Cholesterol 44 mg/dL (60-100); LDL Cholesterol Calculated 112 mg/dL (50-129); LDL HDL Ratio 2.55 RATIO (0.00-3.22); Triglycerides 47 mg/dL (0-150)
[2023-03-18 09:43] LABS: Glucose Point of Care 104 mg/dL (70-110)
--- NOTE | 2023-03-18 10:23 | P.PN_ITS ---
Subjective Subjective: getting HD Medications: Reviewed: Yes Vitals/I&O/Wt Last Vital Signs Temp 98.1 F 03/18/23 01:00 Pulse 52 L 03/18/23 06:00 Resp 15 03/18/23 06:00 BP 153/88 03/18/23 06:00 Pulse Ox 95 03/18/23 06:00 O2 Del Method Room Air 03/17/23 19:30 03/17/23 03/18/23 03/18/23 22:59 06:59 14:59 Intake Total 2532.5 / 2532.5 804.333 / 3336.833 Output Total 1817 / 1817 50 / 1867 Balance 715.5 / 715.5 754.333 / 1469.833 Weight last 48 hrs Weight 97.069 kg Weight 95.1 kg Weight 97.522 kg Physical Exam Narrative: awake , alert No distress S1S2 RRR per report Lungs clear per repot no edema Urinary Catheter Management: Hester: Cath Placed During This Visit: yes Reason for Continuing Indwelling Catheter: Accurate Measurement of Urinary Output in Critically Ill Patients Urinary Catheter Date of Insertion: 03/17/23 Urinary Catheter Time of Insertion: 16:46 Data 03/18/23 05:00 03/18/23 05:00 A&P Assessment and plan (1) Acute renal failure: Plan 1. Acute on chronic kidney disease: Seems like his last creatinine was 1.9 in August. Now has severe GIUSEPPE with a creatinine of 20. Etiology likely multifactorial, prerenal( sec to diarrhea ) solitary left with possible chronic obstruction on the right . Has left renal atrophy. Serological work- up ordered and pending at this time. Would benefit from urology evaluation. Plan for emergent HD due to severe hyperkalemia 2. Hyperkalemia: Low K diet and HD as above 3. Hypertension: Blood pressure elevated, will add meds if blood pressure remains elevated after HD 4. Bilateral kidney stones, will need urology evaluation. Has right hydronephrosis mild 5. Hyperphosphatemia: Should improve with HD. Patient evaluated using audiovisual cart. Time spent 40 minutes Attestations Medical Necessity Statement*: per mediicne team Coding Level of Care Code Acute Code for [facility] Fwd Diagnoses Acute renal failure N17.9
[2023-03-18 10:25] LABS: Glucose Point of Care 95 mg/dL (70-110)
[2023-03-18] MEDS: pantoprazole DR 40 mg Tablet PO (10:30)
[2023-03-18] MEDS: heparin, porcine 1,000 unit/mL INJ 10 mL 10000 UNIT INTRACATH (10:31)
[2023-03-18] MEDS: heparin 5,000 unit/mL INJ 1 mL 5000 UNIT SUBCUT ×2 (10:32→21:26)
--- NOTE | 2023-03-18 11:09 | PC.NURSE ---
Vancomycin and Zosyn will be administered after dialysis.
[2023-03-18 11:48] LABS: Glucose Point of Care 89 mg/dL (70-110)
--- NOTE | 2023-03-18 11:55 | PC.NURSE ---
Dr Paige notified of blood sugar 89mg/dl , continues to trend down. Orders to restart D 10% IV fluids back at 50ml/hr.
[2023-03-18] MEDS: piperacillin-tazobactam 3.375 GM in sodium chloride 0.9% (plus) 50 ML IV ×2 (12:38→23:22)
[2023-03-18] MEDS: vancomycin 1,500 MG/300 ML PIGGYBACK 200 MG IV (12:38)
--- NOTE | 2023-03-18 12:39 | PC.NURSE ---
Dialysis completed. 3 liters removed. Vancomycin and Zosyn started.
[2023-03-18 13:02] LABS: Glucose Point of Care 90 mg/dL (70-110)
--- NOTE | 2023-03-18 13:41 | PM.PN ---
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, does report a prior medical history of recurrent nephrolithiasis, no intervention history, history of CKD stage unknown, no family history of CKD, and his mom did have kidney cancer, we discussed his creatinine still being 18.7, his potassium has normalized, he will likely need dialysis this morning, spoke to dialysis nurse, we discussed his CT findings, he has a 9 mm right proximal ureteral stone, that has evidence of mild hydronephrosis that will need surgical intervention, I put him on antibiotics for prophylaxis for concerns for possible UTI and/or infection for now, discussed transfer to tertiary level center as we do not have urology here, he is agreeable, spoke to [facility], they are on ICU divert, spoke to [facility], they are also full, spoke to [facility], spoke to their urologist at [facility] urolology accepted patient, spoke with patient, he is agreeable, will wait on bed, patient is n.p.o., in case he needs to have urgent surgical evaluation, for stenting, he is on D10 due to hypoglycemia, will continue for now, Vitals/I&O/Wt Last Vital Signs Temp 98.1 F 03/18/23 01:00 Pulse 79 03/18/23 10:46 Resp 15 03/18/23 06:00 BP 153/88 03/18/23 06:00 Pulse Ox 96 03/18/23 10:46 O2 Del Method Room Air 03/18/23 10:46 03/17/23 03/18/23 03/18/23 22:59 06:59 14:59 Intake Total 2532.5 / 2532.5 804.333 / 3336.833 701.417 / 701.417 Output Total 1817 / 1817 50 / 1867 Balance 715.5 / 715.5 754.333 / 1469.833 701.417 / 701.417 Weight last 48 hrs Weight 97.069 kg Weight 95.1 kg Weight 97.522 kg Physical Exam Const: COMMON NORMALS: no acute distress and patient oriented x3 Resp: COMMON NORMALS: normal respiratory effort, No retractions, No use of accessory muscles and clear to auscultation bilaterally AUSCULTATION: clear to auscultation bilaterally Cardio: COMMON NORMALS: regular rate, regular rhythm, S1 normal heart sound present and S2 normal heart sound present RATE: regular rate RHYTHM: regular rhythm HEART SOUNDS: S1 normal heart sound present and S2 normal heart sound present GI: COMMON NORMALS: Normal to inspection, nondistended, normoactive bowel sounds present and non-tender : OTHER: Right femoral dialysis catheter in place, Extremity: COMMON NORMALS: no pedal edema Neuro: COMMON NORMALS: patient oriented x3 Psych: COMMON NORMALS: mental status grossly normal Urinary Catheter Management: Hester: Cath Placed During This Visit: yes Reason for Continuing Indwelling Catheter: Accurate Measurement of Urinary Output in Critically Ill Patients Urinary Catheter Date of Insertion: 03/17/23 Urinary Catheter Time of Insertion: 16:46 Data 03/18/23 05:00 03/18/23 05:00 A&P Assessment and plan (1) Acute renal failure: -Has history of chronic kidney disease, could be stage IIIb, lab results from August this year showed a GFR of 30 ? Has a history of whitecoat hypertension, but is not on hypertensive therapy ? Does have a 9 mm right proximal ureteral stone that could be playing a role, ? Could be possible glomerulonephritis, might require kidney biopsy in the near future (2) Kidney stones: -Denies passing kidney stone currently (3) High anion gap metabolic acidosis: Resolved with dialysis (4) Elevated blood pressure reading without diagnosis of hypertension: Variable blood pressures currently in a healthcare setting. Indicates that outside of healthcare setting blood pressures are typically normal. Has never required antihypertensive therapy long-term. (5) Diarrhea: Suspect functional diarrhea based on preceding constipation, but given acute renal failure have to keep in mind potential infectious sources Plan Inpatient admission We will consider moving to [facility] based on clinical progress Nephrology consultation for emergent dialysis Temporary hemodialysis catheter has been placed by general surgery Receiving dialysis today Currently n.p.o., plans on possible surgery, D10 Has received insulin and dextrose, albuterol, calcium chloride, bicarbonate and Kayexalate Telemetry monitoring Continue IV fluids Awaiting bed at [facility] this Hester catheter for close monitoring of urine output in the setting of acute renal failure C3-C4, MUKESH, salicylate, A1c, lipid panel, iron, PTH and vitamin D Check magnesium, phosphorus and uric acid Check stool studies Monitor blood pressures presently given anticipated initiation of acute hemodialysis today May have to consider initiation of antihypertensives, keeping in mind history of white coat hypertension Supportive care otherwise Findings, concerns and plans discussed with patient given opportunity to ask questions Anticipate DC home with outpatient follow up with nephrology as a new patient, possible with hemodialysis as a new patient, and with primary care provider who will need to be established. Spoke to [facility], spoke to urology at [place] FULL CODE Attestations Medical Necessity Statement*: Patient requires hospitalization for acute renal failure, hyperkalemia, 9 mm, proximal ureteral stone, requiring transfer to tertiary level center, Diagnoses Acute renal failure N17.9 Kidney stones N20.0 High anion gap metabolic acidosis E87.29 Elevated blood pressure reading without diagnosis of hypertension R03.0 Diarrhea R19.7
--- NOTE | 2023-03-18 13:49 | PM.TDS ---
Transfer Summary Providers Date of Admission: 03/17/23 15:59 Date of Discharge/Transfer: 03/19/23 Attending Provider at Admission: Ceci Moody MD Attending Provider at Transfer: Juve Paige MD Transfer Plans: Anticipated date of transfer: 03/19/23. Diagnoses at Discharge Discharge Diagnosis (1) Acute renal failure: Status: Acute (2) Kidney stones: Status: Acute (3) High anion gap metabolic acidosis: Status: Acute (4) Elevated blood pressure reading without diagnosis of hypertension: Status: Acute (5) Diarrhea: Status: Acute Reason for Visit Reason for Visit kidney pain Hospital Course Hospital Course Ricky Russo is a 58 year old male who presented to the emergency room with chief complaint of kidney pain.? Mr. Russo has a history of kidney stones in the past.? He is never required any invasive or noninvasive intervention for kidney stones previously.? He has passed the stones but does not know what kind of stones he has passed.? He began having right-sided pain a little more than a week ago on Friday.? It was sharp right-sided pain that has not abated and ultimately he decided to come in today for further evaluation.? Pain has not been radiating into his groin.? He has not passed a stone that he is aware of.? He has had general malaise.? He had been having issues with constipation but lately has had diarrhea.? He is nauseated presently.? On arrival to the emergency room blood pressures were 160s over 80s and heart rate in the 90s.? He was afebrile.? Laboratory studies came back showing BUN and creatinine of 130/19.9 and a potassium level of 8.2.? Repeat labs to verify showed BUN and creatinine 153/20.2 again with a potassium of 8.2.? He has received calcium chloride and sodium bicarbonate, albuterol, insulin and dextrose along with IV fluids.? He has also been given Kayexalate.? Bilateral renal ultrasound has been done and CT without contrast is ordered but pending.? He has some right flank pain but not currently severe.? He has not used any NSAIDs.? His only medication is as needed Flomax when he is having issues with kidney stones.? He has no known personal history of chronic kidney disease.? He has recently located here from [place].? I was able to see labs that were done in August 2022 and at that time BUN and creatinine were 35/1.97 with potassium of 5.3.? Other labs available from then are documented below in the data section.? Twelve-lead EKG does have some elevation in T waves but currently in sinus rhythm.? Hospitalist were contacted for admission given need for emergent dialysis.? Surgery has placed temporary dialysis catheter in the right groin.? Approximately 15 mL of urine have been collected just recently and are noted to be clear and yellow.? At no time does he report any tea colored urine, blood in his urine.? Last urine output was a couple of days ago at home.? No recent chest pain or difficulty breathing.? He has had recent sore throat.? He is also had some low back pain and complained of his feet hurting him most recently.? General sense of not feeling well currently.? No palpitations.? Nephrology has been contacted for consultation. Patient was admitted to [facility] for resistant hyperkalemia, acute renal failure, requiring emergent dialysis, with dialysis catheter placement, patient's hyperkalemia resolved, monitor in the ICU, continues to have acute renal failure, minimal urine output. Patient will require further evaluation of acute renal failure, through nephrology, possible etiologies include acute on chronic CKD, undiagnosed hypertension, possible glomerulonephritis, also component of patient's 9 mm right ureteral stone could be playing a role. Patient was found to have a 9 mm right ureteral stone, with mild obstruction, was placed on broad-spectrum antibiotic therapy as he was complaining of right flank pain, will be transferred to tertiary level [place] for urology evaluation. A&P Assessment and plan (1) Acute renal failure: -Has history of chronic kidney disease, could be stage IIIb, lab results from August this year showed a GFR of 30 ? Has a history of whitecoat hypertension, but is not on hypertensive therapy -Has radiographic evidence of atrophic left kidney, possibly nonfunctional ? Does have a 9 mm right proximal ureteral stone, with mild hydronephrosis, could be a reason for his sudden deterioration in kidney function and his atrophic left kidney ? Could be possible glomerulonephritis, might require kidney biopsy in the near future Physical Exam Const: COMMON NORMALS: no acute distress and patient oriented x3 Resp: COMMON NORMALS: normal respiratory effort, No retractions, No use of accessory muscles and clear to auscultation bilaterally AUSCULTATION: clear to auscultation bilaterally Cardio: COMMON NORMALS: regular rate, regular rhythm, S1 normal heart sound present and S2 normal heart sound present RATE: regular rate RHYTHM: regular rhythm HEART SOUNDS: S1 normal heart sound present and S2 normal heart sound present GI: COMMON NORMALS: Normal to inspection, nondistended, normoactive bowel sounds present and non-tender Extremity: COMMON NORMALS: no pedal edema Neuro: COMMON NORMALS: patient oriented x3 Psych: COMMON NORMALS: mental status grossly normal Urinary Catheter Management: Hester: Cath Placed During This Visit: yes Reason for Continuing Indwelling Catheter: Accurate Measurement of Urinary Output in Critically Ill Patients Urinary Catheter Date of Insertion: 03/17/23 Urinary Catheter Time of Insertion: 16:46 TS Data Studies Completed and Pending Pending at discharge Category Date Time Status MUKESH Profile Custom [[facility] [place] MUKESH Profile] Routine Lab 03/17/23 16:13 Received Basic Metabolic Panel AM LABS Lab 03/19/23 04:00 Ordered Basic Metabolic Panel AM LABS Lab 03/20/23 04:00 Ordered Clostridium Diffi Toxin Reflex Routine Lab 03/17/23 18:57 Ordered Immunochemical Fecal OCB Routine Lab 03/17/23 18:57 Ordered Lactoferrin Routine Lab 03/17/23 18:57 Ordered OVA and Parasites, Conc and PE Routine Lab 03/17/23 18:57 Ordered Salmonella / Shigella / Campy Routine Lab 03/17/23 18:57 Ordered Labs from last 24 hours 03/18/23 03/18/23 03/18/23 12:36 11:24 10:23 WBC RBC Hgb Hct MCV MCH MCHC RDW Plt Count MPV Neut % (Auto) Lymph % (Auto) Reagan % (Auto) Eos % (Auto) Baso % (Auto) Neut # (Auto) Lymph # (Auto) Reagan # (Auto) Eos # (Auto) Baso # (Auto) Nucleated RBC % (auto) Nucleated RBCs # PT INR APTT Sodium Potassium Chloride Carbon Dioxide Anion Gap BUN Creatinine GFR Calculation Glucose POC Glucose 90 89 95 Estimat Average Glucose Hemoglobin A1c Calculated Osmolality Uric Acid Calcium Phosphorus Magnesium Iron TIBC % Saturation Unsat Iron Binding Total Bilirubin AST ALT Alkaline Phosphatase Creatine Kinase Total Protein Albumin Globulin Triglycerides Cholesterol LDL Cholesterol, Calc HDL Cholesterol LDL/HDL Ratio Cholesterol/HDL Ratio 25-OH Vitamin D Total TSH PTH Intact Calcium (PTH Intact) Urine Color Urine Appearance Urine pH Ur Specific [place] Urine Protein Urine Glucose (UA) Urine Ketones Urine Blood Urine Nitrate Urine Bilirubin Urine Urobilinogen Ur Leukocyte Esterase Urine RBC Urine WBC Ur Squamous Epith Cells Amorphous Sediment Urine Bacteria Salicylates SS-A/Ro IgG Antibody SS-B/La IgG Antibody Anti-nRNP/Sm IgG Ab Scl-70 Scleroderma Ab Complement C3 Complement C4 Comp C4 Binding Protein Hep Bs Antigen Hep Bs Antibody Hepatitis C Antibody HIV 1&2 Ab & HIV 1 Ag HIV 1&2 Antibody 03/18/23 03/18/23 03/18/23 09:33 05:00 05:00 WBC 7.92 RBC 4.25 Hgb 12.20 Hct 36.8 L MCV 86.6 MCH 28.7 MCHC 33.2 RDW 13.3 Plt Count 204 MPV 10.6 H Neut % (Auto) 76.5 Lymph % (Auto) 10.6 Reagan % (Auto) 11.7 Eos % (Auto) 0.8 Baso % (Auto) 0.3 Neut # (Auto) 6.06 Lymph # (Auto) 0.8 Reagan # (Auto) 0.9 Eos # (Auto) 0.1 Baso # (Auto) 0.0 Nucleated RBC % (auto) 0 Nucleated RBCs # 0.0 PT INR APTT Sodium 133 L Potassium 5.0 Chloride 96 L Carbon Dioxide 21 L Anion Gap 21.0 H BUN 98 H* Creatinine 18.7 H* D GFR Calculation 2.6 L Glucose 151 H POC Glucose 104 Estimat Average Glucose Hemoglobin A1c Calculated Osmolality 309 H Uric Acid Calcium 8.2 L Phosphorus 8.4 H* Magnesium 2.2 Iron TIBC % Saturation Unsat Iron Binding Total Bilirubin AST ALT Alkaline Phosphatase Creatine Kinase Total Protein Albumin Globulin Triglycerides Cholesterol LDL Cholesterol, Calc HDL Cholesterol LDL/HDL Ratio Cholesterol/HDL Ratio 25-OH Vitamin D Total TSH 0.89 PTH Intact Calcium (PTH Intact) Urine Color Urine Appearance Urine pH Ur Specific [place] Urine Protein Urine Glucose (UA) Urine Ketones Urine Blood Urine Nitrate Urine Bilirubin Urine Urobilinogen Ur Leukocyte Esterase Urine RBC Urine WBC Ur Squamous Epith Cells Amorphous Sediment Urine Bacteria Salicylates SS-A/Ro IgG Antibody SS-B/La IgG Antibody Anti-nRNP/Sm IgG Ab Scl-70 Scleroderma Ab Complement C3 Complement C4 Comp C4 Binding Protein Hep Bs Antigen Hep Bs Antibody Hepatitis C Antibody HIV 1&2 Ab & HIV 1 Ag HIV 1&2 Antibody 03/18/23 03/18/23 03/17/23 05:00 01:28 21:10 WBC RBC Hgb Hct MCV MCH MCHC RDW Plt Count MPV Neut % (Auto) Lymph % (Auto) Reagan % (Auto) Eos % (Auto) Baso % (Auto) Neut # (Auto) Lymph # (Auto) Reagan # (Auto) Eos # (Auto) Baso # (Auto) Nucleated RBC % (auto) Nucleated RBCs # PT INR APTT Sodium 133 L Potassium 3.8 Chloride 95 L Carbon Dioxide 24 Anion Gap 17.8 BUN 79 H Creatinine 11.8 H* GFR Calculation 4.4 L Glucose 120 H POC Glucose 132 H Estimat Average Glucose Hemoglobin A1c Calculated Osmolality 301 H Uric Acid Calcium 8.8 Phosphorus Magnesium Iron TIBC % Saturation Unsat Iron Binding Total Bilirubin AST ALT Alkaline Phosphatase Creatine Kinase Total Protein Albumin Globulin Triglycerides 47 Cholesterol 165 LDL Cholesterol, Calc 112 HDL Cholesterol 44 L LDL/HDL Ratio 2.55 Cholesterol/HDL Ratio 3.75 25-OH Vitamin D Total 18 L TSH PTH Intact Calcium (PTH Intact) Urine Color Urine Appearance Urine pH Ur Specific [place] Urine Protein Urine Glucose (UA) Urine Ketones Urine Blood Urine Nitrate Urine Bilirubin Urine Urobilinogen Ur Leukocyte Esterase Urine RBC Urine WBC Ur Squamous Epith Cells Amorphous Sediment Urine Bacteria Salicylates SS-A/Ro IgG Antibody SS-B/La IgG Antibody Anti-nRNP/Sm IgG Ab Scl-70 Scleroderma Ab Complement C3 Complement C4 Comp C4 Binding Protein Hep Bs Antigen Hep Bs Antibody Hepatitis C Antibody HIV 1&2 Ab & HIV 1 Ag HIV 1&2 Antibody 03/17/23 03/17/23 03/17/23 20:39 19:00 18:54 WBC RBC Hgb Hct MCV MCH MCHC RDW Plt Count MPV Neut % (Auto) Lymph % (Auto) Reagan % (Auto) Eos % (Auto) Baso % (Auto) Neut # (Auto) Lymph # (Auto) Reagan # (Auto) Eos # (Auto) Baso # (Auto) Nucleated RBC % (auto) Nucleated RBCs # PT INR APTT Sodium 133 L Potassium 6.5 H* D Chloride 99 Carbon Dioxide 13 L Anion Gap 27.5 H BUN 124 H* Creatinine 20.6 H* GFR Calculation 2.3 L Glucose 112 POC Glucose 107 100 Estimat Average Glucose Hemoglobin A1c Calculated Osmolality 317 H Uric Acid Calcium 8.9 Phosphorus 8.9 H* Magnesium 2.8 H Iron TIBC % Saturation Unsat Iron Binding Total Bilirubin AST ALT Alkaline Phosphatase Creatine Kinase Total Protein Albumin Globulin Triglycerides Cholesterol LDL Cholesterol, Calc HDL Cholesterol LDL/HDL Ratio Cholesterol/HDL Ratio 25-OH Vitamin D Total TSH PTH Intact Calcium (PTH Intact) Urine Color Urine Appearance Urine pH Ur Specific [place] Urine Protein Urine Glucose (UA) Urine Ketones Urine Blood Urine Nitrate Urine Bilirubin Urine Urobilinogen Ur Leukocyte Esterase Urine RBC Urine WBC Ur Squamous Epith Cells Amorphous Sediment Urine Bacteria Salicylates SS-A/Ro IgG Antibody SS-B/La IgG Antibody Anti-nRNP/Sm IgG Ab Scl-70 Scleroderma Ab Complement C3 Complement C4 Comp C4 Binding Protein Hep Bs Antigen Hep Bs Antibody Hepatitis C Antibody HIV 1&2 Ab & HIV 1 Ag HIV 1&2 Antibody 03/17/23 03/17/23 03/17/23 16:51 16:41 16:13 WBC RBC Hgb Hct MCV MCH MCHC RDW Plt Count MPV Neut % (Auto) Lymph % (Auto) Reagan % (Auto) Eos % (Auto) Baso % (Auto) Neut # (Auto) Lymph # (Auto) Reagan # (Auto) Eos # (Auto) Baso # (Auto) Nucleated RBC % (auto) Nucleated RBCs # PT INR APTT Sodium Potassium Chloride Carbon Dioxide Anion Gap BUN Creatinine GFR Calculation Glucose POC Glucose 85 Estimat Average Glucose Hemoglobin A1c Calculated Osmolality Uric Acid Calcium Phosphorus Magnesium Iron TIBC % Saturation Unsat Iron Binding Total Bilirubin AST ALT Alkaline Phosphatase Creatine Kinase Total Protein Albumin Globulin Triglycerides Cholesterol LDL Cholesterol, Calc HDL Cholesterol LDL/HDL Ratio Cholesterol/HDL Ratio 25-OH Vitamin D Total TSH PTH Intact Calcium (PTH Intact) Urine Color Straw Urine Appearance Clear Urine pH 5 Ur Specific [place] 1.010 Urine Protein Neg Urine Glucose (UA) Norm Urine Ketones 1+ H Urine Blood Trace H Urine Nitrate Negative Urine Bilirubin Neg Urine Urobilinogen Norm Ur Leukocyte Esterase Negative Urine RBC Rare Urine WBC Rare Ur Squamous Epith Cells None Amorphous Sediment Not Reportable Urine Bacteria Trace Salicylates SS-A/Ro IgG Antibody SS-B/La IgG Antibody Anti-nRNP/Sm IgG Ab Scl-70 Scleroderma Ab Complement C3 Complement C4 20 Comp C4 Binding Protein Hep Bs Antigen Hep Bs Antibody Hepatitis C Antibody HIV 1&2 Ab & HIV 1 Ag HIV 1&2 Antibody 03/17/23 03/17/23 03/17/23 16:13 16:13 16:13 WBC RBC Hgb Hct MCV MCH MCHC RDW Plt Count MPV Neut % (Auto) Lymph % (Auto) Reagan % (Auto) Eos % (Auto) Baso % (Auto) Neut # (Auto) Lymph # (Auto) Reagan # (Auto) Eos # (Auto) Baso # (Auto) Nucleated RBC % (auto) Nucleated RBCs # PT 15.90 H INR 1.22 H APTT 27.7 Sodium Potassium Chloride Carbon Dioxide Anion Gap BUN Creatinine GFR Calculation Glucose POC Glucose Estimat Average Glucose Hemoglobin A1c Calculated Osmolality Uric Acid Calcium Phosphorus Magnesium Iron TIBC % Saturation Unsat Iron Binding Total Bilirubin AST ALT Alkaline Phosphatase Creatine Kinase Total Protein Albumin Globulin Triglycerides Cholesterol LDL Cholesterol, Calc HDL Cholesterol LDL/HDL Ratio Cholesterol/HDL Ratio 25-OH Vitamin D Total TSH PTH Intact Calcium (PTH Intact) Urine Color Urine Appearance Urine pH Ur Specific [place] Urine Protein Urine Glucose (UA) Urine Ketones Urine Blood Urine Nitrate Urine Bilirubin Urine Urobilinogen Ur Leukocyte Esterase Urine RBC Urine WBC Ur Squamous Epith Cells Amorphous Sediment Urine Bacteria Salicylates SS-A/Ro IgG Antibody Pending SS-B/La IgG Antibody Pending Anti-nRNP/Sm IgG Ab Pending Scl-70 Scleroderma Ab Pending Complement C3 Complement C4 Comp C4 Binding Protein Cancelled Hep Bs Antigen Hep Bs Antibody Hepatitis C Antibody HIV 1&2 Ab & HIV 1 Ag HIV 1&2 Antibody 03/17/23 03/17/23 03/17/23 16:13 16:13 16:13 WBC RBC Hgb Hct MCV MCH MCHC RDW Plt Count MPV Neut % (Auto) Lymph % (Auto) Reagan % (Auto) Eos % (Auto) Baso % (Auto) Neut # (Auto) Lymph # (Auto) Reagan # (Auto) Eos # (Auto) Baso # (Auto) Nucleated RBC % (auto) Nucleated RBCs # PT INR APTT Sodium Potassium Chloride Carbon Dioxide Anion Gap BUN Creatinine GFR Calculation Glucose POC Glucose Estimat Average Glucose Hemoglobin A1c Calculated Osmolality Uric Acid Calcium Phosphorus Magnesium Iron TIBC % Saturation Unsat Iron Binding Total Bilirubin AST ALT Alkaline Phosphatase Creatine Kinase Total Protein Albumin Globulin Triglycerides Cholesterol LDL Cholesterol, Calc HDL Cholesterol LDL/HDL Ratio Cholesterol/HDL Ratio 25-OH Vitamin D Total TSH PTH Intact 85.7 H Calcium (PTH Intact) 10.6 H Urine Color Urine Appearance Urine pH Ur Specific [place] Urine Protein Urine Glucose (UA) Urine Ketones Urine Blood Urine Nitrate Urine Bilirubin Urine Urobilinogen Ur Leukocyte Esterase Urine RBC Urine WBC Ur Squamous Epith Cells Amorphous Sediment Urine Bacteria Salicylates SS-A/Ro IgG Antibody SS-B/La IgG Antibody Anti-nRNP/Sm IgG Ab Scl-70 Scleroderma Ab Complement C3 Complement C4 Comp C4 Binding Protein Hep Bs Antigen Non-reactive Hep Bs Antibody 6.6 L Hepatitis C Antibody Non-reactive HIV 1&2 Ab & HIV 1 Ag Non-reactive HIV 1&2 Antibody Non-reactive 03/17/23 03/17/23 03/17/23 16:13 16:13 15:53 WBC RBC Hgb Hct MCV MCH MCHC RDW Plt Count MPV Neut % (Auto) Lymph % (Auto) Reagan % (Auto) Eos % (Auto) Baso % (Auto) Neut # (Auto) Lymph # (Auto) Reagan # (Auto) Eos # (Auto) Baso # (Auto) Nucleated RBC % (auto) Nucleated RBCs # PT INR APTT Sodium Potassium Chloride Carbon Dioxide Anion Gap BUN Creatinine GFR Calculation Glucose POC Glucose 82 Estimat Average Glucose 108 Hemoglobin A1c 5.4 Calculated Osmolality Uric Acid 9.5 H Calcium Phosphorus 8.8 H* Magnesium 2.3 Iron 58 L TIBC 164 % Saturation 35.3 Unsat Iron Binding 106 L Total Bilirubin AST ALT Alkaline Phosphatase Creatine Kinase 63 Total Protein Albumin Globulin Triglycerides Cholesterol LDL Cholesterol, Calc HDL Cholesterol LDL/HDL Ratio Cholesterol/HDL Ratio 25-OH Vitamin D Total TSH PTH Intact Calcium (PTH Intact) Urine Color Urine Appearance Urine pH Ur Specific [place] Urine Protein Urine Glucose (UA) Urine Ketones Urine Blood Urine Nitrate Urine Bilirubin Urine Urobilinogen Ur Leukocyte Esterase Urine RBC Urine WBC Ur Squamous Epith Cells Amorphous Sediment Urine Bacteria Salicylates SS-A/Ro IgG Antibody SS-B/La IgG Antibody Anti-nRNP/Sm IgG Ab Scl-70 Scleroderma Ab Complement C3 111 Complement C4 Comp C4 Binding Protein Hep Bs Antigen Hep Bs Antibody Hepatitis C Antibody HIV 1&2 Ab & HIV 1 Ag HIV 1&2 Antibody 03/17/23 03/17/23 03/17/23 14:29 13:52 13:52 WBC RBC Hgb Hct MCV MCH MCHC RDW Plt Count MPV Neut % (Auto) Lymph % (Auto) Reagan % (Auto) Eos % (Auto) Baso % (Auto) Neut # (Auto) Lymph # (Auto) Reagan # (Auto) Eos # (Auto) Baso # (Auto) Nucleated RBC % (auto) Nucleated RBCs # PT INR APTT Sodium 127 L 128 L Potassium 8.2 H* 8.2 H* Chloride 92 L 93 L Carbon Dioxide 12 L 11 L Anion Gap 31.2 H 32.2 H BUN 153 H* 130 H* Creatinine 20.2 H* 19.9 H* GFR Calculation 2.4 L 2.4 L Glucose 82 82 POC Glucose Estimat Average Glucose Hemoglobin A1c Calculated Osmolality 313 H 307 H Uric Acid Calcium 8.4 L 8.4 L Phosphorus Magnesium Iron TIBC % Saturation Unsat Iron Binding Total Bilirubin 0.3 AST 5 ALT 7 Alkaline Phosphatase 69 Creatine Kinase Total Protein 6.6 Albumin 3.7 Globulin 2.9 Triglycerides Cholesterol LDL Cholesterol, Calc HDL Cholesterol LDL/HDL Ratio Cholesterol/HDL Ratio 25-OH Vitamin D Total TSH PTH Intact Calcium (PTH Intact) Urine Color Urine Appearance Urine pH Ur Specific [place] Urine Protein Urine Glucose (UA) Urine Ketones Urine Blood Urine Nitrate Urine Bilirubin Urine Urobilinogen Ur Leukocyte Esterase Urine RBC Urine WBC Ur Squamous Epith Cells Amorphous Sediment Urine Bacteria Salicylates < 0.3 L SS-A/Ro IgG Antibody SS-B/La IgG Antibody Anti-nRNP/Sm IgG Ab Scl-70 Scleroderma Ab Complement C3 Complement C4 Comp C4 Binding Protein Hep Bs Antigen Hep Bs Antibody Hepatitis C Antibody HIV 1&2 Ab & HIV 1 Ag HIV 1&2 Antibody 03/17/23 13:52 WBC 7.77 RBC 4.55 Hgb 12.90 Hct 40.3 MCV 88.6 MCH 28.4 MCHC 32.0 RDW 13.2 Plt Count 265 MPV 10.2 Neut % (Auto) 82.2 Lymph % (Auto) 8.5 Reagan % (Auto) 8.0 Eos % (Auto) 0.5 Baso % (Auto) 0.3 Neut # (Auto) 6.39 Lymph # (Auto) 0.7 L Reagan # (Auto) 0.6 Eos # (Auto) 0.0 Baso # (Auto) 0.0 Nucleated RBC % (auto) 0 Nucleated RBCs # 0.0 PT INR APTT Sodium Potassium Chloride Carbon Dioxide Anion Gap BUN Creatinine GFR Calculation Glucose POC Glucose Estimat Average Glucose Hemoglobin A1c Calculated Osmolality Uric Acid Calcium Phosphorus Magnesium Iron TIBC % Saturation Unsat Iron Binding Total Bilirubin AST ALT Alkaline Phosphatase Creatine Kinase Total Protein Albumin Globulin Triglycerides Cholesterol LDL Cholesterol, Calc HDL Cholesterol LDL/HDL Ratio Cholesterol/HDL Ratio 25-OH Vitamin D Total TSH PTH Intact Calcium (PTH Intact) Urine Color Urine Appearance Urine pH Ur Specific [place] Urine Protein Urine Glucose (UA) Urine Ketones Urine Blood Urine Nitrate Urine Bilirubin Urine Urobilinogen Ur Leukocyte Esterase Urine RBC Urine WBC Ur Squamous Epith Cells Amorphous Sediment Urine Bacteria Salicylates SS-A/Ro IgG Antibody SS-B/La IgG Antibody Anti-nRNP/Sm IgG Ab Scl-70 Scleroderma Ab Complement C3 Complement C4 Comp C4 Binding Protein Hep Bs Antigen Hep Bs Antibody Hepatitis C Antibody HIV 1&2 Ab & HIV 1 Ag HIV 1&2 Antibody Completed Studies During Hospitalization Category Date Time Status CT kidney stone [id number] Stat Cat Scan 03/17/23 14:09 Completed US renal BI* [id number] Stat Ultrasound 03/17/23 15:56 Completed Laboratory Last Values WBC 7.92 10^3/uL (3.29-11.43) 03/18/23 05:00 RBC 4.25 10^6/uL (3.85-5.65) 03/18/23 05:00 Hgb 12.20 g/dL (11.27-16.99) 03/18/23 05:00 Hct 36.8 % (37-53) L 03/18/23 05:00 MCV 86.6 fl (82-101) 03/18/23 05:00 MCH 28.7 pg (27-33) 03/18/23 05:00 MCHC 33.2 g/dL (30-55) 03/18/23 05:00 RDW 13.3 % (12.1-15.1) 03/18/23 05:00 Plt Count 204 10^3/cmm (157-399) 03/18/23 05:00 MPV 10.6 fL (7.4-10.4) H 03/18/23 05:00 Neut % (Auto) 76.5 % 03/18/23 05:00 Lymph % (Auto) 10.6 % 03/18/23 05:00 Reagan % (Auto) 11.7 % 03/18/23 05:00 Eos % (Auto) 0.8 % 03/18/23 05:00 Baso % (Auto) 0.3 % 03/18/23 05:00 Neut # (Auto) 6.06 10^3/uL (1.8-7.7) 03/18/23 05:00 Lymph # (Auto) 0.8 10^3/uL (0.8-4.8) 03/18/23 05:00 Reagan # (Auto) 0.9 10^3/uL (0.2-0.9) 03/18/23 05:00 Eos # (Auto) 0.1 10^3/uL (0.0-0.8) 03/18/23 05:00 Baso # (Auto) 0.0 10^3/uL (0.0-0.1) 03/18/23 05:00 Nucleated RBC % (auto) 0 % 03/18/23 05:00 Nucleated RBCs # 0.0 /100WBC 03/18/23 05:00 PT 15.90 SECONDS (12.1-14.9) H 03/17/23 16:13 INR 1.22 (0.8-1.2) H 03/17/23 16:13 APTT 27.7 SECONDS (23.9-36.7) 03/17/23 16:13 Sodium 133 mmol/L (136-145) L 03/18/23 05:00 Potassium 5.0 mmol/L (3.5-5.1) 03/18/23 05:00 Chloride 96 mmol/L (98-107) L 03/18/23 05:00 Carbon Dioxide 21 mmol/L (22-29) L 03/18/23 05:00 Anion Gap 21.0 (5-19) H 03/18/23 05:00 BUN 98 mg/dL (6-20) H* 03/18/23 05:00 Creatinine 18.7 mg/dL (0.7-1.2) H* D 03/18/23 05:00 GFR Calculation 2.6 mL/min (90-130) L 03/18/23 05:00 Glucose 151 mg/dL (65-115) H 03/18/23 05:00 POC Glucose 90 mg/dL (70-110) 03/18/23 12:36 Estimat Average Glucose 108 03/17/23 16:13 Hemoglobin A1c 5.4 % (4.0-6.0) 03/17/23 16:13 Calculated Osmolality 309 mOsm/kg (285-295) H 03/18/23 05:00 Uric Acid 9.5 mg/dL (3.4-7.0) H 03/17/23 16:13 Calcium 8.2 mg/dL (8.5-10.5) L 03/18/23 05:00 Phosphorus 8.4 mg/dL (2.5-4.5) H* 03/18/23 05:00 Magnesium 2.2 mg/dL (1.7-2.3) 03/18/23 05:00 Iron 58 ug/dL (59-158) L 03/17/23 16:13 TIBC 164 mcg/dl 03/17/23 16:13 % Saturation 35.3 % (20-50) 03/17/23 16:13 Unsat Iron Binding 106 ug/dL (112-347) L 03/17/23 16:13 Total Bilirubin 0.3 mg/dL (0.15-1.2) 03/17/23 13:52 AST 5 U/L (0-40) 03/17/23 13:52 ALT 7 U/L (0-41) 03/17/23 13:52 Alkaline Phosphatase 69 U/L (40-130) 03/17/23 13:52 Creatine Kinase 63 U/L (39-308) 03/17/23 16:13 Total Protein 6.6 g/dL (6.6-8.7) 03/17/23 13:52 Albumin 3.7 g/dL (3.5-5.2) 03/17/23 13:52 Globulin 2.9 g/dL (1.3-4.6) 03/17/23 13:52 Triglycerides 47 mg/dL (0-150) 03/18/23 05:00 Cholesterol 165 mg/dL (0-200) 03/18/23 05:00 LDL Cholesterol, Calc 112 mg/dL (50-129) 03/18/23 05:00 HDL Cholesterol 44 mg/dL (60-100) L 03/18/23 05:00 LDL/HDL Ratio 2.55 RATIO (0.00-3.22) 03/18/23 05:00 Cholesterol/HDL Ratio 3.75 mg/dL (1.0-5.00) 03/18/23 05:00 25-OH Vitamin D Total 18 ng/mL (30-100) L 03/18/23 05:00 TSH 0.89 uIU/mL (0.27-4.20) 03/18/23 05:00 PTH Intact 85.7 pg/mL (15-65) H 03/17/23 16:13 Calcium (PTH Intact) 10.6 mg/dL (8.5-10.5) H 03/17/23 16:13 Urine Color Straw (Yellow) 03/17/23 16:41 Urine Appearance Clear (CLEAR) 03/17/23 16:41 Urine pH 5 (5-7) 03/17/23 16:41 Ur Specific [place] 1.010 (1.005-1.030) 03/17/23 16:41 Urine Protein Neg (Negative) 03/17/23 16:41 Urine Glucose (UA) Norm (Normal) 03/17/23 16:41 Urine Ketones 1+ (Negative) H 03/17/23 16:41 Urine Blood Trace (Negative) H 03/17/23 16:41 Urine Nitrate Negative (Negative) 03/17/23 16:41 Urine Bilirubin Neg (Negative) 03/17/23 16:41 Urine Urobilinogen Norm mg/dL (Negative) 03/17/23 16:41 Ur Leukocyte Esterase Negative (Negative) 03/17/23 16:41 Urine RBC Rare /hpf (0-2) 03/17/23 16:41 Urine WBC Rare /hpf (0-5) 03/17/23 16:41 Ur Squamous Epith Cells None /hpf (0-5) 03/17/23 16:41 Amorphous Sediment Not Reportable 03/17/23 16:41 Urine Bacteria Trace /hpf (NONE) 03/17/23 16:41 Salicylates < 0.3 mg/dL (3-10) L 03/17/23 13:52 Complement C3 111 mg/dL (90-180) 03/17/23 16:13 Complement C4 20 mg/dL (10-40) 03/17/23 16:13 Comp C4 Binding Protein Cancelled 03/17/23 16:13 Hep Bs Antigen Non-reactive (Nonreactive) 03/17/23 16:13 Hep Bs Antibody 6.6 (11.5-1000) L 03/17/23 16:13 Hepatitis C Antibody Non-reactive (Nonreactive) 03/17/23 16:13 HIV 1&2 Ab & HIV 1 Ag Non-reactive (Non-Reactiv) 03/17/23 16:13 HIV 1&2 Antibody Non-reactive (Non-Reactiv) 03/17/23 16:13 Radiology Impressions Abdomen/Pelvis CT 03/17/23 14:09 IMPRESSION: 1. 9 mm obstructing calculus in the proximal right ureter with mild hydronephrosis. 2. Bilateral renal calculi. 3. 1.7 cm indeterminate cortical lesion in the superior left kidney. Recommend non-emergent MRI without and with contrast or non-emergent CT without and with contrast. MRI is preferred for masses under 1.5 cm. 4. Atrophic left kidney. 5. Mild wall thickening of the urinary bladder is most likely related to nondistention. Cystitis is not excluded. 6. Mild ascites. COMMENTS: Consistent with the [employer]'s Incidental Findings Committee white paper (J Am Aleksandr Radiol 2018): Any incidental renal lesion less than 1 cm or classified as too small to characterize, or any incidental cystic renal lesion characterized as simple-appearing, is likely benign. No follow-up imaging is recommended for these lesions per consensus recommendations based on imaging criteria. Renal Ultrasound 03/17/23 15:56 IMPRESSION: 1. Mild right hydronephrosis. The calculus in the proximal right ureter visible on the CT scan, is not visible on the ultrasound. 2. 4 mm right renal calculus. 3. Small left kidney. The small left renal calculus visualized on the CT is not visible on the ultrasound. Recent Clincial Data Last Vital Signs Temp 98.1 F 03/18/23 01:00 Pulse 79 03/18/23 10:46 Resp 15 03/18/23 06:00 BP 153/88 03/18/23 06:00 Pulse Ox 96 03/18/23 10:46 O2 Del Method Room Air 03/18/23 10:46 Vital Signs Pulse Resp BP Pulse Ox O2 Del Method 03/18/23 10:46 79 96 Room Air 03/18/23 06:00 52 L 03/18/23 06:00 54 L 15 153/88 95 03/18/23 05:00 60 20 H 154/89 98 03/18/23 04:00 54 L 17 139/72 97 03/18/23 03:00 57 L 15 137/75 95 03/18/23 02:00 55 L 16 163/88 96 Intake & Output/Weight 03/16/23 03/17/23 03/18/23 03/19/23 06:59 06:59 06:59 06:59 Intake Total 3336.833 / 3336.833 701.417 / 701.417 Output Total 1867 / 1867 Balance 1469.833 / 1469.833 701.417 / 701.417 Weight 97.069 kg Vitals Last Vital Signs Temp 98.1 F 03/18/23 01:00 Pulse 79 03/18/23 10:46 Resp 15 03/18/23 06:00 BP 153/88 03/18/23 06:00 Pulse Ox 96 03/18/23 10:46 O2 Del Method Room Air 03/18/23 10:46 TS Medications Medications Acetaminophen (Acetaminophen 325 Mg Tablet) 650 mg PO Q6H PRN PRN Reason: MILD PAIN Last Admin: 03/17/23 22:01 Dose: 650 mg Docusate Sodium (Docusate Sodium 100 Mg Capsule) 100 mg PO BID [facility] Last Admin: 03/18/23 10:34 Dose: Not Given Heparin Sodium (Porcine) (Heparin 5,000 Unit/Ml Inj 1 Ml) 5,000 unit SUBCUT Q12H [facility] Last Admin: 03/18/23 10:32 Dose: 5,000 unit Dextrose (D10w) 1,000 mls @ 50 mls/hr IV .Q20H ANA Last Infusion: 03/18/23 11:51 Dose: 50 mls/hr Albumin Human (Albumin) 12.5 gm in 50 mls @ 60 mls/hr IV PRN PRN PRN Reason: Hypotension and/or symptomatic Sodium Chloride (Sodium Chloride 0.9%) 1,000 mls @ 0 mls/hr IV .Q0M PRN PRN Reason: hypotension or symptomatic Albumin Human (Albumin) 12.5 gm in 50 mls @ 60 mls/hr IV PRN PRN PRN Reason: Hypotension and/or symptomatic Sodium Chloride (Sodium Chloride 0.9%) 1,000 mls @ 0 mls/hr IV .Q0M PRN PRN Reason: hypotension or symptomatic Piperacillin Sod/Tazobactam (Sod 3.375 gm/ Sodium Chloride) 50 mls @ 12.5 mls/hr IV Q12H [facility]; Protocol Last Admin: 03/18/23 12:38 Dose: 12.5 mls/hr Vancomycin/PEG/NADA/Lysine/Water (Vancocin) 1,500 mg in 300 mls @ 200 mls/hr IV Q48H [facility] Last Admin: 03/18/23 12:38 Dose: 200 mls/hr Ondansetron HCl (Ondansetron 2 Mg/Ml Sdv 2 Ml) 4 mg IVP Q12H PRN PRN Reason: NAUSEA AND VOMITING Pantoprazole Sodium (Pantoprazole Dr 40 Mg Tablet) 40 mg PO DAILY [facility] Last Admin: 03/18/23 10:30 Dose: 40 mg Discontinued Medications Albuterol Sulfate (Albuterol 2.5 Mg/3 Ml Neb) 10 mg INHALATION ONCE ONE Stop: 03/17/23 14:45 Last Admin: 03/17/23 16:29 Dose: 10 mg Calcium Chloride (Calcium Chloride 10% Syr 10 Ml) 2 gm IVP ONCE ONE Stop: 03/17/23 14:45 Last Admin: 03/17/23 15:55 Dose: 2 gm Heparin Sodium (Porcine) (Heparin, Porcine 1,000 Unit/Ml Inj 10 Ml) 10,000 unit INTRACATH ONCE ONE Stop: 03/17/23 18:08 Last Admin: 03/17/23 19:47 Dose: 10,000 unit Heparin Sodium (Porcine) (Heparin, Porcine 1,000 Unit/Ml Inj 10 Ml) 10,000 unit INTRACATH ONCE ONE Stop: 03/18/23 08:18 Last Admin: 03/18/23 10:31 Dose: 10,000 unit Heparin Sodium (Porcine) (Heparin, Porcine 1,000 Unit/Ml Inj 10 Ml) 1,000 unit IV ONCE ONE Stop: 03/18/23 08:18 Last Admin: 03/18/23 10:33 Dose: Not Given Sodium Chloride (Sodium Chloride 0.9%) 1,000 mls @ 999 mls/hr IV .Q1H1M ONE Stop: 03/17/23 15:34 Last Infusion: 03/17/23 15:39 Dose: Infused Sodium Chloride (Sodium Chloride 0.9%) 1,000 mls @ 999 mls/hr IV .Q1H1M ONE Stop: 03/17/23 15:43 Last Infusion: 03/17/23 15:39 Dose: Infused Insulin Human Regular (Insulin Regular-Human 100 Units/1 Ml) 10 unit IVP ONCE ONE Stop: 03/17/23 14:45 Last Admin: 03/17/23 15:56 Dose: 10 unit Promethazine HCl (Promethazine 25 Mg/Ml Sdv 1 Ml) 25 mg IM ONCE ONE Stop: 03/17/23 16:10 Last Admin: 03/17/23 16:13 Dose: 25 mg Sodium Bicarbonate (Sodium Bicarbonate 8.4% 1 Meq/Ml 50ml Syr) 100 meq IVP ONCE ONE Stop: 03/17/23 14:45 Last Admin: 03/17/23 15:56 Dose: 100 meq Sodium Polystyrene Sulfonate (Sodium Polystyrene Sulfonate 15 Gm/60 Ml Btl) 15 gm PO ONCE ONE Stop: 03/17/23 14:45 Last Admin: 03/17/23 16:03 Dose: 15 gm Allergies No Known Allergies Allergy (Verified 03/17/23 13:41) Home Medications tamsulosin 0.4 mg capsule 0.4 mg PO DAILY PRN KIDNEY STONES 03/17/23 [History Confirmed 03/17/23] Discharge Plan Discharge Patient Disposition: Home Condition: Stable Prescriptions: No Action tamsulosin 0.4 mg Capsule 0.4 mg PO DAILY PRN (Reason: KIDNEY STONES) Patient Instructions: Dialysis Diet (DC), Hemodialysis (DC), Opioid Safety Transfer Attestations Time Spent in Transfer Care: greater than 30 min Quality Metrics Clinical Quality Measures [ No reported AMI, CVA or VTE this stay] Coding Level of Care Code 44580 Total time (in minutes) for Discharge: 45 Diagnoses Acute renal failure N17.9 Kidney stones N20.0 High anion gap metabolic acidosis E87.29 Elevated blood pressure reading without diagnosis of hypertension R03.0 Diarrhea R19.7
[2023-03-18 14:19] LABS: Anti-Double Strand DNA AB <1 IU/mL; Jo-1 Antibody <1.0 NEG AI (<1.0 NEG); SM/RNP Antibodies <1.0 NEG AI (<1.0 NEG); SS-B/LA IGG <1.0 NEG AI (<1.0 NEG); Scleroderma Ab(Scl-70) Ab <1.0 NEG AI (<1.0 NEG); Ss-A/Ro Igg <1.0 NEG AI (<1.0 NEG)
[2023-03-18 17:08] LABS: Glucose Point of Care 104 mg/dL (70-110)
[2023-03-18] MEDS: dextrose 10% 1,000 ML 50 ML IV (18:12)
--- NOTE | 2023-03-18 19:30 | PC.NURSE ---
Shift summary: Pt remains A & O . VSS. He does tend to be bradycardic (47-60). states he usually does have slow heart beat. He is afebrile No N/V noted. Pt did have one bout of diarrhea earlier in the shift, right before dialysis today. He tolerated dialysis very well. 3 liters removed. Slight belly cramping noted for a couple hours post dialysis. He states his back really samson not hurt, more of a cramp like a muscle. He denies needing any pain medication. Clear liquid diet started this eveing. He was on D 10% at 75 ml/hr a t beginning of shift. stopped it for a few hours , his blood sugars started trending down to 89mg/dl, Dr Paige notified. D 10% restarted at 50ml/hr. His Creatinine and BUN still remain very elevated. Minimal urine out put noted. 100ml for all shift, but it was clear and pale yellow.
[2023-03-18 21:50] LABS: Glucose Point of Care 113 mg/dL (70-110)
[2023-03-19] VITALS (26 sets, daily range): BP systolic 119–169; BP diastolic 74–101; PULSE 43–64; RESP 11–18; TEMP 36.9–37.1; O2SAT 95–100
[2023-03-19 05:53] LABS: Basophils % 0.6 %; Eosinophils # 0.3 10^3/uL (0.0-0.8); Eosinophils % 4.1 %; Hematocrit 36.7 % (37-53); Lymphocytes # 1.2 10^3/uL (0.8-4.8); Mean Corpuscular Hemoglobin 28.7 pg (27-33); Mean Corpuscular Volume 87.2 fl (82-101); Mean Platelet Volume 10.1 fL (7.4-10.4); Monocytes # 1.1 10^3/uL (0.2-0.9); Monocytes % 14.9 %; Neutrophils # 4.65 10^3/uL (1.8-7.7); Neutrophils % 64.1 %; Nucleated Red Blood Cells % 0 %; Platelet Count 206 10^3/cmm (157-399); Red Blood Count 4.21 10^6/uL (3.85-5.65); Red Cell Distribution Width 13.2 % (12.1-15.1); White Blood Count 7.25 10^3/uL (3.29-11.43)
[2023-03-19 06:03] LABS: INR 1.23 (0.8-1.2)
[2023-03-19 06:20] LABS: Creatine Phosphokinase 29 U/L (39-308)
[2023-03-19 06:21] LABS: Alanine Aminotransferase 6 U/L (0-41); Alkaline Phosphatase 58 U/L (40-130); Anion Gap 20.8 (5-19); Aspartate Amino Transferase 6 U/L (0-40); Blood Urea Nitrogen 69 mg/dL (6-20); C Reactive Protein 22.7 mg/L (0.0-4.9); Calcium 8.1 mg/dL (8.5-10.5); Carbon Dioxide 22 mmol/L (22-29); Chloride 94 mmol/L (98-107); Globulin 2.8 g/dL (1.3-4.6); Glomerular Filtration Rate 3.4 mL/min (90-130); Glucose 130 mg/dL (65-115); Lactate (Lactic Acid level) 0.8 mmol/L (0.5-2.2); Magnesium 2.1 mg/dL (1.7-2.3); Osmolality Calculated 296 mOsm/kg (285-295); Phosphorus 7.5 mg/dL (2.5-4.5); Potassium 4.8 mmol/L (3.5-5.1); Sodium 132 mmol/L (136-145); Total Bilirubin 0.4 mg/dL (0.15-1.2); Total Protein 5.8 g/dL (6.6-8.7)
[2023-03-19 06:24] LABS: Procalcitonin 0.08 ng/mL (0-0.5)
[2023-03-19] MEDS: heparin 5,000 unit/mL INJ 1 mL 5000 UNIT SUBCUT (09:48)
[2023-03-19] MEDS: pantoprazole DR 40 mg Tablet PO (09:48)
--- NOTE | 2023-03-19 11:11 | P.PN_ITS ---
Subjective Subjective: getting hD Medications: Reviewed: Yes Vitals/I&O/Wt Last Vital Signs Temp 98.5 F 03/19/23 08:00 Pulse 50 L 03/19/23 10:00 Resp 14 03/19/23 10:00 BP 158/74 03/19/23 10:00 Pulse Ox 98 03/19/23 10:00 O2 Del Method Room Air 03/19/23 10:00 03/18/23 03/19/23 03/19/23 22:59 06:59 14:59 Intake Total 748.583 / 2450.000 Output Total 100 / 3600 Balance 648.583 / -1150.000 Weight last 48 hrs Weight 95.708 kg Weight 95.527 kg Weight 97.069 kg Weight 95.1 kg Weight 97.522 kg Physical Exam Narrative: awake , alert No distress S1S2 RRR per report Lungs clear per repot no edema Urinary Catheter Management: Hester: Cath Placed During This Visit: yes Reason for Continuing Indwelling Catheter: Accurate Measurement of Urinary Output in Critically Ill Patients Urinary Catheter Date of Insertion: 03/17/23 Urinary Catheter Time of Insertion: 16:46 Data 03/19/23 05:32 03/19/23 05:32 A&P Assessment and plan (1) Acute renal failure: Plan 1. Acute on chronic kidney disease: Seems like his last creatinine was 1.9 in August. Now has severe GIUSEPPE with a creatinine of 20. Etiology likely multifactorial, prerenal( sec to diarrhea ) solitary left with possible chronic obstruction on the right . Has left renal atrophy. Serological work- up ordered and pending at this time. Would benefit from urology evaluation Remains anuric , HD started via temporary HD catheter , HD # 3 today 2. Hyperkalemia: Low K diet and HD as above 3. Hypertension: Blood pressure 110's to 140's range , monitor 4. Bilateral kidney stones, will need urology evaluation. Has right hydro nephrosis mild 5. Hyperphosphatemia: Should improve with HD. Patient evaluated using audiovisual cart. Time spent 20 minutes Attestations Medical Necessity Statement*: PER MEDICINE TEAM Coding Level of Care Code Acute Code for Chg Fwd Diagnoses Acute renal failure N17.9
--- NOTE | 2023-03-19 11:25 | PC.NURSE ---
Zosyn, antibiotic, until after Dialysis.
[2023-03-19] MEDS: heparin, porcine 1,000 unit/mL INJ 10 mL 10000 UNIT INTRACATH (11:26)
[2023-03-19] MEDS: heparin, porcine 1,000 unit/mL INJ 10 mL 1000 UNIT IV (11:26)
--- NOTE | 2023-03-19 11:40 | PM.PN ---
Subjective Subjective: Patient was seen this morning, he is alert oriented x3, follows all commands, he tolerated dialysis well no lightheadedness, dizziness, he is a bit frustrated about the lack of beds following transfer, he wants to be transferred to potentially a hospital closer to [place], he wants us to try [facility], he is okay with [facility] or [facility], discussed risk and benefits of transfer, he voiced understanding, all questions agreed to proceed, spoke to [facility], spoke to physician, accepted in transfer, waiting on bed, I relayed this to patient, he is agreeable to go to [facility], spoke to patient and nephrology, patient does have radiographic evidence of atrophic left kidney, so the concern is that left kidney is nonfunctional, and now with his right kidney and 9 mm kidney stone, this might be a reason for his sudden deterioration of his kidney function, Vitals/I&O/Wt Last Vital Signs Temp 98.5 F 03/19/23 08:00 Pulse 50 L 03/19/23 10:00 Resp 14 03/19/23 10:00 BP 158/74 03/19/23 10:00 Pulse Ox 98 03/19/23 10:00 O2 Del Method Room Air 03/19/23 10:00 03/18/23 03/19/23 03/19/23 22:59 06:59 14:59 Intake Total 748.583 / 2450.000 Output Total 100 / 3600 Balance 648.583 / -1150.000 Weight last 48 hrs Weight 95.708 kg Weight 95.527 kg Weight 97.069 kg Weight 95.1 kg Weight 97.522 kg Physical Exam Const: COMMON NORMALS: no acute distress and patient oriented x3 Resp: COMMON NORMALS: normal respiratory effort, No retractions, No use of accessory muscles and clear to auscultation bilaterally AUSCULTATION: clear to auscultation bilaterally Cardio: COMMON NORMALS: regular rate, regular rhythm, S1 normal heart sound present and S2 normal heart sound present RATE: regular rate RHYTHM: regular rhythm HEART SOUNDS: S1 normal heart sound present and S2 normal heart sound present GI: COMMON NORMALS: Normal to inspection, nondistended, normoactive bowel sounds present and non-tender Extremity: COMMON NORMALS: no pedal edema Neuro: COMMON NORMALS: patient oriented x3 Psych: COMMON NORMALS: mental status grossly normal Urinary Catheter Management: Hester: Cath Placed During This Visit: yes Reason for Continuing Indwelling Catheter: Accurate Measurement of Urinary Output in Critically Ill Patients Urinary Catheter Date of Insertion: 03/17/23 Urinary Catheter Time of Insertion: 16:46 Data 03/19/23 05:32 03/19/23 05:32 A&P Assessment and plan (1) Acute renal failure: -Has history of chronic kidney disease, could be stage IIIb, lab results from August this year showed a GFR of 30 ? Has a history of whitecoat hypertension, but is not on hypertensive therapy -Has radiographic evidence of atrophic left kidney, possibly nonfunctional ? Does have a 9 mm right proximal ureteral stone, with mild hydronephrosis, could be a reason for his sudden deterioration in kidney function and his atrophic left kidney ? Could be possible glomerulonephritis, might require kidney biopsy in the near future (2) Kidney stones: -Denies passing kidney stone currently -Needs transfer to tertiary level center for urology evaluation, given 9 mm proximal ureteral stone, and deterioration of kidney function (3) High anion gap metabolic acidosis: Resolved with dialysis (4) Elevated blood pressure reading without diagnosis of hypertension: Variable blood pressures currently in a healthcare setting. Indicates that outside of healthcare setting blood pressures are typically normal. Has never required antihypertensive therapy long-term. (5) Diarrhea: Suspect functional diarrhea based on preceding constipation, but given acute renal failure have to keep in mind potential infectious sources (6) Hyperkalemia: Resolved Plan Inpatient admission We will consider moving to [facility] based on clinical progress Nephrology consultation Temporary hemodialysis catheter has been placed by general surgery, right groin Receiving dialysis today Has received insulin and dextrose, albuterol, calcium chloride, bicarbonate and Kayexalate Telemetry monitoring Continue IV fluids Awaiting bed now at [facility] in [place] Hester catheter for close monitoring of urine output in the setting of acute renal failure C3-C4, MUKESH, salicylate, A1c, lipid panel, iron, PTH and vitamin D Monitor blood pressures presently given anticipated initiation of acute hemodialysis today May have to consider initiation of antihypertensives, keeping in mind history of white coat hypertension Supportive care otherwise Findings, concerns and plans discussed with patient given opportunity to ask questions Anticipate DC home with outpatient follow up with nephrology as a new patient, possible with hemodialysis as a new patient, and with primary care provider who will need to be established. FULL CODE Spoke to patient, spoke to [facility], spoke to physician [facility], spoke to nephrology, spoke to nursing staff Attestations Medical Necessity Statement*: Patient requires hospitalization, inpatient, for acute renal failure, hyperkalemia which has resolved, 9 mm proximal right ureteral stone with acute renal failure requiring urology evaluation Diagnoses Acute renal failure N17.9 Kidney stones N20.0 High anion gap metabolic acidosis E87.29 Elevated blood pressure reading without diagnosis of hypertension R03.0 Diarrhea R19.7 Hyperkalemia E87.5
[2023-03-19] MEDS: dextrose 10% 1,000 ML 50 ML IV (14:43)
[2023-03-19] MEDS: piperacillin-tazobactam 3.375 GM in sodium chloride 0.9% (plus) 50 ML IV (14:43)
--- NOTE | 2023-03-19 15:15 | PC.NURSE ---
Report called to Deonna [facility]fieldBOBBY. [facility] for room 3270. Report given to Kristyn Maher RN. All questions answered.
--- NOTE | 2023-03-19 15:24 | PC.NURSE ---
[facility] notified of other hospital's acceptance and to cancel the request for a bed there.
--- NOTE | 2023-03-19 16:27 | PC.NURSE ---
[facility] crew arrived. Pt discharged to their care. All belongings with pt. Kristyn Light RN, notified via telephone, pt on way. mariana, notified via telephone pt on way.
== END 2023-03-19 16:30 | disposition short-term general hospital (02) | DRG 683 ==
LOC: ER 16:12 → ICU 18:08
PROVIDERS: Physician Assistant; Admitting Provider Hospitalist; Emergency Provider Family Medicine; Visit Provider Family Medicine
DX: N17.9 Acute kidney failure, unspecified (principal); E87.20 Acidosis, unspecified; E87.5 Hyperkalemia; R19.7 Diarrhea, unspecified; E83.39 Other disorders of phosphorus metabolism; I12.9 Hypertensive chronic kidney disease with stage 1 through stage 4 chronic kidney disease, or unspecified chronic kidney disease; N18.32 Chronic kidney disease, stage 3b; N13.2 Hydronephrosis with renal and ureteral calculous obstruction
CPT/HCPCS: 36415; 36416; 51702; 51798; 74176; 76770; 80048; 80053; 80061; 80307; 81001; 82306; 82310; 82550; 82962; 83036; 83540; 83550; 83605; 83735; 83970; 84100; 84145; 84443; 84550; 85025; 85610; 85730; 86140; 86160; 86225; 86235; 86706; 86803; 87340; 87806; 90935; 93005; 94640; 96372; 96374; 96375; 99285; J1644; J1815; J2543; J2550; J3370; J3490; J7030; J7613; Q3014